=== PATIENT | male | born 1990 | race Caucasian/White ===

== ENCOUNTER 2018-11-30 12:52 | Inpatient (IN) | payer OTHER ==
[2018-11-30 14:19] LABS: Amphetamine Screen,Urine Detected (NotDetected); Barbiturate Screen,Urine Not Detected (NotDetected); Benzodiazepines Screen,Urine Not Detected (NotDetected); Cocaine Screen,Urine Not Detected (NotDetected); Methadone Screen, Urine Not Detected (NotDetected); Opiate Screen,Urine Not Detected (NotDetected); Oxycodone Screen, Urine Not Detected (NotDetected); Phencyclidine Screen,Urine Not Detected (NotDetected); Tricyclic Antidepressant,Urine Not Detected (NotDetected); Urn Cannabinoid Scrn Not Detected (NotDetected)
--- NOTE | 2018-11-30 15:12 | ED ---
Psych HPI - General Chief Complaint: Psychiatric Symptoms Stated Complaint: Mental Health Time Seen by Provider: 11/30/18 12:58 Source: patient, police, EMS, RN notes reviewed Mode of arrival: EMS Limitations: no limitations - History of Present Illness Initial Comments: This a 28-year-old male presents emergency Department with police for psychiatric evaluation. Patient states he has been depressed and states it is currently going through a divorce. Patient states he had an argument with his parents) for kicked him out the house last night. Patient states he is not suicidal. Patient states he is under a lot of stress because he is been trying take care of his kids, pain his bills and his mortgage in the house that he does not live in. Patient denies any physical complaints. He does admit that his heart has been headache as she's been anxious and states he drank 3 ripples. Patient denies any illicit drug use no alcohol abuse. - Related Data Home Medications Medication Instructions Recorded Confirmed Famotidine [Pepcid] 20 mg PO DAILY 11/30/18 11/30/18 Melatonin Unknown Dose 1 tab PO HS 11/30/18 11/30/18 Sertraline [Zoloft] 50 mg PO DAILY 11/30/18 11/30/18 Allergies Allergy/AdvReac Type Severity Reaction Status Date / Time No Known Allergies Allergy Verified 11/30/18 13:57 Review of Systems ROS Statement: Those systems with pertinent positive or pertinent negative responses have been documented in the HPI. ROS Other: All systems not noted in ROS Statement are negative. Past Medical History Past Medical History: No Reported History History of Any Multi-Drug Resistant Organisms: MRSA Date of last positivie culture/infection: 01/11/2014 MDRO Source:: Eye Past Surgical History: Tonsillectomy Past Psychological History: No Psychological Hx Reported Smoking Status: Current every day smoker Past Alcohol Use History: Occasional Past Drug Use History: None Reported General Exam Limitations: no limitations General appearance: alert, in no apparent distress Head exam: Present: atraumatic, normocephalic, normal inspection Eye exam: Present: normal appearance, PERRL, EOMI. Absent: scleral icterus, conjunctival injection, periorbital swelling ENT exam: Present: normal exam, normal oropharynx, mucous membranes moist, TM's normal bilaterally Neck exam: Present: normal inspection, full ROM. Absent: tenderness, meningismus, lymphadenopathy Respiratory exam: Present: normal lung sounds bilaterally. Absent: respiratory distress, wheezes, rales, rhonchi, stridor Cardiovascular Exam: Present: normal rhythm, tachycardia, normal heart sounds. Absent: systolic murmur, diastolic murmur, rubs, gallop, clicks GI/Abdominal exam: Present: soft, normal bowel sounds. Absent: distended, tenderness, guarding, rebound, rigid Neurological exam: Present: alert, oriented X3, CN II-XII intact Skin exam: Present: warm, dry, intact, normal color. Absent: rash Course Vital Signs 11/30/18 11/30/18 13:11 15:03 Temperature 97.4 F L Pulse Rate 140 H 118 H Respiratory 20 20 Rate Blood Pressure 169/99 135/80 O2 Sat by Pulse 100 99 Oximetry Medical Decision Making - Medical Decision Making 28-year-old male presented for psychiatric evaluation. Patient is brought by patient states police. Patient will be admitted for further evaluation for major depressive disorder with suicidal threats - Lab Data Lab Results 11/30/18 Range/Units 13:02 Urine Opiates Screen Not Detected (NotDetected) Ur Oxycodone Screen Not Detected (NotDetected) Urine Methadone Screen Not Detected (NotDetected) Ur Propoxyphene Screen Not Detected (NotDetected) Ur Barbiturates Screen Not Detected (NotDetected) U Tricyclic Antidepress Not Detected (NotDetected) Ur Phencyclidine Scrn Not Detected (NotDetected) Ur Amphetamines Screen Detected H (NotDetected) U Methamphetamines Scrn Not Detected (NotDetected) U Benzodiazepines Scrn Not Detected (NotDetected) Urine Cocaine Screen Not Detected (NotDetected) U Marijuana (THC) Screen Not Detected (NotDetected) Disposition Clinical Impression: Depression Disposition: TRANSFER TO PSYCH HOSP/UNIT Condition: Stable Referrals: None,Stated [Primary Care Provider] - 1-2 days Decision Date: 11/30/18 Decision Time: 15:42
[2018-11-30] MEDS ORDERED: NICOTINE 21MG/24HR PATCH TRANSDERM STA ×2 (15:37→18:34)
[2018-11-30] MEDS ORDERED: ZIPRASIDONE 20 MG VIAL IM STA (15:39)
[2018-11-30] MEDS ORDERED: LORazepam 2 MG/ML INJ IM STA (15:39)
[2018-11-30] MEDS ORDERED: ACETAMINOPHEN TAB 325 MG TAB PO PRN (16:57)
[2018-11-30] MEDS ORDERED: LORazepam 1 MG TAB PO PRN (16:57)
[2018-11-30] MEDS ORDERED: ZIPRASIDONE 20 MG VIAL IM PRN (16:57)
[2018-11-30] MEDS ORDERED: MAGNESIUM HYDROXIDE 2,400 MG/10 ML CUP PO PRN (16:57)
[2018-11-30] MEDS ORDERED: MAG HYDROX/AL HYDROX/SIMETH 30 ML CUP PO PRN (16:57)
[2018-11-30] MEDS ORDERED: LORazepam 2 MG/ML INJ IM PRN (17:01)
--- NOTE | 2018-11-30 17:49 | P.HPMEDMHU ---
History of Present Illness H&P Date: 11/30/18 Chief Complaint: altered behaviors Patient is a 19-year-old male with no significant past medical history who was brought in to the ER via police escort after family petitioned him. He has subsequently been admitted to the mental health unit. Patient seen and examined. He states he has been depressed and under a lot of stress lately due to his divorce. He had been residing with his mother. He has a history of drug use and last night he relapsed using methamphetamine. He states he was sober for 5 weeks prior to this. He states that things probably became escalated last night with his mother secondary to methamphetamine use. He denies any recent cough, cold, fever, flu, nausea, vomiting, diarrhea, constipation, abdominal pain, dysuria. He reports that he has had poor sleep quality lately. He states he recently was started on antidepressant. He states that he would not want to do anything that would harm his Children. States that bruising on his leg is from poor circulation. 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 He reports some facial itching. Review of Systems Pertinent positives and negatives as discussed in HPI, a complete review of systems was performed and all other systems are negative. 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 No assistive devices. - Past Family History Mother Additional Family Medical History / Comment(s): thyroid cancer Father Additional Family Medical History / Comment(s): DM 2, HTN Medications and Allergies Home Medications Medication Instructions Recorded Confirmed Type Famotidine [Pepcid] 20 mg PO DAILY 11/30/18 11/30/18 History Melatonin Unknown Dose 1 tab PO HS 11/30/18 11/30/18 History Sertraline [Zoloft] 50 mg PO DAILY 11/30/18 11/30/18 History Allergies Allergy/AdvReac Type Severity Reaction Status Date / Time No Known Allergies Allergy Verified 11/30/18 13:57 Physical Exam Osteopathic Statement: *. No significant issues noted on an osteopathic structural exam other than those noted in the History and Physical/Consult. Vitals: Vital Signs Temp Pulse Resp BP Pulse Ox 11/30/18 15:03 118 H 20 135/80 99 11/30/18 13:11 97.4 F L 140 H 20 169/99 100 Intake and Output 11/30/18 11/30/18 11/30/18 06:59 14:59 22:59 Other: Weight 81.647 kg General: non toxic, no distress, appears at stated age, normal weight Derm:+ erythema with desquamation of skin to right face and neck- consistent with sunburn, no unusual ecchymoses, warm, dry Head: atraumatic, normocephalic, symmetric Eyes: EOMI, no lid lag, anicteric sclera, pupils equal round reactive to light ENT: Nose and ears atraumatic, no thrush, no pharyngeal erythema Neck: No thyromegaly, no cervical lymphadenopathy, trachea midline, supple Mouth: no lip lesion, mucus membranes moist Cardiovascular: S1S2 reg, no murmur, positive posterior tibial pulse bilateral, no edema, capillary refill less than 2 seconds Lungs: CTA bilateral, no rhonchi, no rales , no accessory muscle use Abdominal: soft, nontender to palpation, no guarding, no appreciable orga nomegaly, normal bowel sounds Ext: no gross muscle atrophy, muscle strength 5 out of 5 in all upper extremities grossly, no contractures, Neuro: CN II-XI grossly intact, light touch intact all 4 extremities, finger to nose within normal limits, Psych: Alert, oriented, easily frustrated Cranial Nerve Examination - Cranial Nerves Cranial Nerve II- Optic: Intact Cranial Nerve III- Oculomotor: Intact Cranial Nerve IV- Trochlear: Intact Cranial Nerve V- Trigeminal: Intact Cranial Nerve - Abducens: Intact Cranial Nerve VII- Facial: Intact Cranial Nerve VIII- Auditory: Intact Cranial Nerve IX- Glossopharyngeal: Intact Cranial Nerve X- Vagus: Intact Cranial Nerve XI- Accessory: Intact Cranial Nerve XII- Hypoglossal: Intact Results Labs: Abnormal Lab Results - Last 24 Hours (Table) 11/30/18 Range/Units 13:02 Ur Amphetamines Screen Detected H (NotDetected) Thrombosis Risk Factor Assmnt - DVT/VTE Prophylaxis DVT/VTE Prophylaxis: Low risk, early ambulation encouraged Assessment and Plan Assessment: facial dermatitis secondary to sun exposure - keep area clean and dry - as needed lotion Tobacco abuse - cessation - nicotine replacement Depression with aggressive behaviors - your psych management Thank you for allowing us to participate in the care of this patient. We will follow peripherally. Do not hesitate to contact us with questions. Someone can be reached from the [facility] hospitalist group at all hours of the day at [phone].
[2018-11-30 18:39] VITALS: BMI 30.6
[2018-11-30] MEDS: MELATONIN 1 MG TAB PO SCH (20:37)
[2018-12-01] MEDS ORDERED: SERTRALINE 50 MG TAB PO SCH ×2 (09:00→21:00)
[2018-12-01] MEDS: NICOTINE 21MG/24HR PATCH TRANSDERM SCH (09:02)
[2018-12-01] MEDS: FAMOTIDINE 20 MG TAB PO SCH (09:02)
[2018-12-01 09:30] LABS: Basophils # (A) 0.1 k/uL (0-0.2); Basophils % (A) 1 %; Eosinophils # (A) 0.2 k/uL (0-0.7); Eosinophils % (A) 2 %; HCT 48.4 % (39.0-53.0); HGB 15.6 gm/dL (13.0-17.5); Lymphocytes # (A) 2.2 k/uL (1.0-4.8); Lymphocytes % (A) 24 %; MCH 27.8 pg (25.0-35.0); MCHC 32.3 g/dL (31.0-37.0); MCV 86.3 fL (80.0-100.0); Mean Platelet Volume 7.3; Monocytes # (A) 0.7 k/uL (0-1.0); Monocytes % (A) 7 %; Neutrophils # (A) 6.1 k/uL (1.3-7.7); Neutrophils % (A) 65 %; Platelet Count 251 k/uL (150-450); RBC 5.61 m/uL (4.30-5.90); RDW 14.1 % (11.5-15.5); WBC 9.4 k/uL (3.8-10.6)
[2018-12-01 09:45] LABS: ALT 52 U/L (21-72); AST 30 U/L (17-59); Albumin 4.6 g/dL (3.5-5.0); Alkaline Phosphatase 80 U/L (38-126); Anion Gap 8 mmol/L; Bilirubin, Delta 0.3 mg/dL (0.0-0.2); Bilirubin,Unconjugated 1.2 mg/dL (0.0-1.1); Blood Urea Nitrogen 15 mg/dL (9-20); Carbon Dioxide 30 mmol/L (22-30); Chloride 101 mmol/L (98-107); Glucose 97 mg/dL (74-99); Potassium 4.8 mmol/L (3.5-5.1); Sodium 139 mmol/L (137-145); Total Bilirubin 1.5 mg/dL (0.2-1.3); Total Protein 7.4 g/dL (6.3-8.2)
--- NOTE | 2018-12-01 14:35 | P.HP ---
Psychiatric H&P - . H&P Date: 12/01/18 History & Physical: Allergies Allergy/AdvReac Type Severity Reaction Status Date / Time No Known Allergies Allergy Verified 11/30/18 18:40 Vital Signs Temp 97.8 F 12/01/18 06:47 Pulse 92 12/01/18 06:47 Resp 16 12/01/18 06:47 BP 130/77 12/01/18 06:47 Pulse Ox 98 11/30/18 16:33 Intake & Output 11/30/18 12/01/18 12/01/18 18:59 06:59 18:59 Weight 81.647 kg Laboratory Last Values WBC 9.4 k/uL (3.8-10.6) 12/01/18 08:40 RBC 5.61 m/uL (4.30-5.90) 12/01/18 08:40 Hgb 15.6 gm/dL (13.0-17.5) 12/01/18 08:40 Hct 48.4 % (39.0-53.0) 12/01/18 08:40 MCV 86.3 fL (80.0-100.0) 12/01/18 08:40 MCH 27.8 pg (25.0-35.0) 12/01/18 08:40 MCHC 32.3 g/dL (31.0-37.0) 12/01/18 08:40 RDW 14.1 % (11.5-15.5) 12/01/18 08:40 Plt Count 251 k/uL (150-450) 12/01/18 08:40 Neutrophils % 65 % 12/01/18 08:40 Lymphocytes % 24 % 12/01/18 08:40 Monocytes % 7 % 12/01/18 08:40 Eosinophils % 2 % 12/01/18 08:40 Basophils % 1 % 12/01/18 08:40 Neutrophils # 6.1 k/uL (1.3-7.7) 12/01/18 08:40 Lymphocytes # 2.2 k/uL (1.0-4.8) 12/01/18 08:40 Monocytes # 0.7 k/uL (0-1.0) 12/01/18 08:40 Eosinophils # 0.2 k/uL (0-0.7) 12/01/18 08:40 Basophils # 0.1 k/uL (0-0.2) 12/01/18 08:40 Sodium 139 mmol/L (137-145) 12/01/18 08:40 Potassium 4.8 mmol/L (3.5-5.1) 12/01/18 08:40 Chloride 101 mmol/L (98-107) 12/01/18 08:40 Carbon Dioxide 30 mmol/L (22-30) 12/01/18 08:40 Anion Gap 8 mmol/L 12/01/18 08:40 BUN 15 mg/dL (9-20) 12/01/18 08:40 Creatinine 0.74 mg/dL (0.66-1.25) 12/01/18 08:40 Est GFR (CKD-EPI)AfAm >90 (>60 ml/min/1.73 sqM) 12/01/18 08:40 Est GFR (CKD-EPI)NonAf >90 (>60 ml/min/1.73 sqM) 12/01/18 08:40 Glucose 97 mg/dL (74-99) 12/01/18 08:40 Calcium 10.0 mg/dL (8.4-10.2) 12/01/18 08:40 Total Bilirubin 1.5 mg/dL (0.2-1.3) H 12/01/18 08:40 Conjugated Bilirubin 0.0 mg/dL (0.0-0.3) 12/01/18 08:40 Unconjugated Bilirubin 1.2 mg/dL (0.0-1.1) H 12/01/18 08:40 Delta Bilirubin 0.3 mg/dL (0.0-0.2) H 12/01/18 08:40 AST 30 U/L (17-59) 12/01/18 08:40 ALT 52 U/L (21-72) 12/01/18 08:40 Alkaline Phosphatase 80 U/L (38-126) 12/01/18 08:40 Total Protein 7.4 g/dL (6.3-8.2) 12/01/18 08:40 Albumin 4.6 g/dL (3.5-5.0) 12/01/18 08:40 TSH 0.570 mIU/L (0.465-4.680) 12/01/18 08:40 Urine Opiates Screen Not Detected (NotDetected) 11/30/18 13:02 Ur Oxycodone Screen Not Detected (NotDetected) 11/30/18 13:02 Urine Methadone Screen Not Detected (NotDetected) 11/30/18 13:02 Ur Propoxyphene Screen Not Detected (NotDetected) 11/30/18 13:02 Ur Barbiturates Screen Not Detected (NotDetected) 11/30/18 13:02 U Tricyclic Antidepress Not Detected (NotDetected) 11/30/18 13:02 Ur Phencyclidine Scrn Not Detected (NotDetected) 11/30/18 13:02 Ur Amphetamines Screen Detected (NotDetected) H 11/30/18 13:02 U Methamphetamines Scrn Not Detected (NotDetected) 11/30/18 13:02 U Benzodiazepines Scrn Not Detected (NotDetected) 11/30/18 13:02 Urine Cocaine Screen Not Detected (NotDetected) 11/30/18 13:02 U Marijuana (THC) Screen Not Detected (NotDetected) 11/30/18 13:02 Assessment and Plan Assessment: This a 28-year-old male presents emergency Department with police for psychia tric evaluation. Patient states he has been depressed and states it is currently going through a divorce. Patient states he had an argument with his parents) for kicked him out the house last night. Patient states he is not suicidal. Patient states he is under a lot of stress because he is been trying take care of his kids, pain his bills and his mortgage in the house that he does not live in. Patient denies any physical complaints. He does admit that his heart has been headache as she's been anxious and states he drank 3 ripples. Patient denies any illicit drug use no alcohol abuse. Police had brought pt. to ER and family came and petitioned. Pt. is in the process of Divorce and his mom has been taking care of his kids. Police were called to moms residence because he was attempting to take his kids while arguing with mom. Pt. had made some suicidal statements but told police he was not going to harm self. Pt. had taken a gun with ammo on the and the police were called to a home by an adopted brother and no report was made. The police located him today and brought him to be evaluated. Pt. denies wanting to harm himself and states his family is ganging up on him. Pt. states his mother wants to keep his kids. Pt. denies and states he made some comments to his about not wanting to be alone but he doesn't want to do anything that will hurt his kids. Pt. admits to buyig a bottle a fifth of [place] 2 weeks ago and finished it yesterday. Pt. states he doesn't use drugs. UDS was positive for amphetamines. - Related Data Home Medications Medication Instructions Recorded Confirmed Famotidine [Pepcid] 20 mg PO DAILY 11/30/18 11/30/18 Melatonin Unknown Dose 1 tab PO HS 11/30/18 11/30/18 Sertraline [Zoloft] 50 mg PO DAILY 11/30/18 11/30/18 Allergies Allergy/AdvReac Type Severity Reaction Status Date / Time No Known Allergies Allergy Verified 11/30/18 13:57 Past Medical History Past Medical History: No Reported History History of Any Multi-Drug Resistant Organisms: MRSA Date of last positivie culture/infection: 01/11/2014 MDRO Source:: Eye Past Surgical History: Tonsillectomy Past Psychological History: history of depression; sister bipolar Smoking Status: Current every day smoker Past Alcohol Use History: Occasional Past Drug Use History: None Reported Musculoskeletal Examination - Abnormal/Involuntary Movements: [none Strength: [greater than antigravity (greater than/equal to 3/5) in all extremities Muscle Tone: [no impairment Gait: [grossly normal Station: [grossly normal Mental Status Examination - General Appearance: [ casual, appears older than stated age Speech/Language: [spontaneous, expressive, loud, ] Attitude/Behavior: [cooperative, guarded, irritable, withdrawn, indifferent Mood: [ depressed, anxious, irritable, angry, fearful, hopelessness] Affect: [ flat, labile, blunted constricted Orientation: [time, person, place situation] Thought Content: [wnl Risk Factors: [denied suicidal (ideations, plan), and/or Homicidal (ideations, plan)] Perception: [wnl, denies hallucinations (auditory, visual, tactile)] Thought Processes: [ concrete, ] Concentration/Attention Span: [ impaired] [Per observation and interview with the patient] Recent Memory: [wnl Remote Memory: [wnl] [past events, as related history] Intelligence: [ above average] [based on history, based on vocabulary, syntax, grammar, and content] Judgement: [good] [per patient's behavior/history of present illness] Insight: [good] [understanding severity of illness/history of present illness] Admitting Diagnosis: [major depressive disorder] Patient Strengths - Personal Skills: [x] Achievements: [x] Steady employment/financial stability: [x] Housing stability: [x] Able to vocalize needs: [x] Values and traditions: [x] Motivation, determination, readiness for change: [x] Patient Limitations: [ pathological/unsupported environment lack of social supports] Initial Plan of Care: [he'll be admitted on 3 W. mental health unit [facility] on a voluntary basis for his depression and irritability anger and marital separation with eventual divorce complicated by children they have together. He will placed on 15 minute watch and usual [facility] therapeutic environment. He'll be evaluated by medicine, psychiatry, nursing staff, social work and occupational therapy and will be teamed and a multidisciplinary approach on a daily basis. 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.] Estimated Length of Stay: [5 days] Initial Discharge Plan: [home residential placement for residential substance abuse treatment of amphetamine] Prognosis: [good, fair, guarded] Justification for Inpatient Hospitalization - [ agitation, anxiety, depression resulting in significant loss of functioning.] [Dangerous to others, with need for controlled environment.] [Emotional or behavioral conditions and complications requiring 24 hour medical and nursing care.] [Need for special drug therapy, or other therapeutic program requiring continuous hospitalization.] [Failure of social or occupational functioning.] [Inability to meet basic life and health needs.] (1) Major depressive disorder with current active episode Current Visit: Yes Status: Acute Code(s): F32.9 - MAJOR DEPRESSIVE DISORDER, SINGLE EPISODE, UNSPECIFIED SNOMED Code(s): 480279719 Time with Patient: Greater than 30
[2018-12-01] MEDS: NALTREXONE HCL 50 MG TAB PO SCH (21:30)
[2018-12-01] MEDS: MELATONIN 1 MG TAB PO SCH (21:31)
[2018-12-02] MEDS: FAMOTIDINE 20 MG TAB PO SCH (08:51)
[2018-12-02] MEDS: buPROPion XL 150 MG TAB.ER.24H PO SCH (08:51)
[2018-12-02] MEDS: NICOTINE 21MG/24HR PATCH TRANSDERM SCH (08:51)
--- NOTE | 2018-12-02 12:18 | P.PN ---
Subjective Progress Note Date: 12/02/18 Principal diagnosis: major depressive disorder and amphetamine chart reviewed and discussed in detail today and he admits that he is an adddict :amphetamine Objective - Vital Signs Vital signs: Vital Signs Temp 97.7 F 12/02/18 06:15 Pulse 71 12/02/18 06:15 Resp 14 12/02/18 06:15 BP 111/60 12/02/18 06:15 Pulse Ox 98 11/30/18 16:33 - Labs CBC & Chem 7: 12/01/18 08:40 12/01/18 08:40 Assessment and Plan Assessment: This a 28-year-old male presents emergency Department with police for psychiatric evaluation. Patient states he has been depressed and states it is currently going through a divorce. Patient states he had an argument with his parents) for kicked him out the house last night. Patient states he is not suicidal. Patient states he is under a lot of stress because he is been trying take care of his kids, pain his bills and his mortgage in the house that he does not live in. Patient denies any physical complaints. He does admit that his heart has been headache as she's been anxious and states he drank 3 ripples. Patient denies any illicit drug use no alcohol abuse. Police had brought pt. to ER and family came and petitioned. Pt. is in the process of Divorce and his mom has been taking care of his kids. Police were called to moms residence because he was attempting to take his kids while arguing with mom. Pt. had made some suicidal statements but told police he was not going to harm self. Pt. had taken a gun with ammo on the and the police were called to a home by an adopted brother and no report was made. The police located him today and brought him to be evaluated. Pt. denies wanting to harm himself and states his family is ganging up on him. Pt. states his mother wants to keep his kids. Pt. denies and states he made some comments to his about not wanting to be alone but he doesn't want to do anything that will hurt his kids. Pt. admits to buyig a bottle a fifth of [place] 2 weeks ago and finished it yesterday. Pt. states he doesn't use drugs. UDS was positive for amphetamines. - Mental Status Examination - General Appearance: [ casual, appears older than stated age Speech/Language: [spontaneous, expressive, loud, ] Attitude/Behavior: [cooperative, guarded, irritable, withdrawn, indifferent Mood: [ depressed, anxious, irritable, angry, fearful, hopelessness] Affect: [ flat, labile, blunted constricted Orientation: [time, person, place situation] Thought Content: [wnl Risk Factors: [denied suicidal (ideations, plan), and/or Homicidal (ideations, plan)] Perception: [wnl, denies hallucinations (auditory, visual, tactile)] Thought Processes: [ concrete, ] Concentration/Attention Span: [ impaired] [Per observation and interview with the patient] Recent Memory: [wnl Remote Memory: [wnl] [past events, as related history] Intelligence: [ above average] [based on history, based on vocabulary, syntax, grammar, and content] Judgement: [good] [per patient's behavior/history of present illness] Insight: [good] [understanding severity of illness/history of present illness] Admitting Diagnosis: [major depressive disorder] Patient Limitations: [ pathological/unsupported environment lack of social supports] Initial Plan of Care: [he'll be admitted on 3 W. mental health unit [facility] on a voluntary basis for his depression and irritability anger and marital separation with eventual divorce complicated by children they have together. He will placed on 15 minute watch and usual [facility] therapeutic environment. He'll be evaluated by medicine, psychiatry, nursing staff, social work and occupational therapy and will be teamed and a multidisciplinary approach on a daily basis. 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
[2018-12-02] MEDS: SERTRALINE 50 MG TAB PO SCH (21:04)
[2018-12-02] MEDS: NALTREXONE HCL 50 MG TAB PO SCH (21:04)
[2018-12-02] MEDS: MELATONIN 1 MG TAB PO SCH (21:04)
[2018-12-03] MEDS: buPROPion XL 150 MG TAB.ER.24H PO SCH (09:03)
[2018-12-03] MEDS: NICOTINE 21MG/24HR PATCH TRANSDERM SCH (09:03)
[2018-12-03] MEDS: FAMOTIDINE 20 MG TAB PO SCH (09:03)
--- NOTE | 2018-12-03 19:57 | P.PN ---
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 Reports gradual improvement in his mood. Medication complaint and tolerating them well. Working on his coping skills. Denies hearing any voices or seeing things. Did sleep better last night MSE :AAOx 4. fair eye contact. Mood depressed. Has no suicidal ideation. No psychoses. Insight and judgment improving Major Depression Will continue to adjust medications accordingly Objective - Vital Signs Vital signs: Vital Signs Temp 98.2 F 12/03/18 00:06 Pulse 87 12/03/18 00:06 Resp 15 12/03/18 00:06 BP 138/86 12/03/18 00:06 Pulse Ox 98 11/30/18 16:33 - Labs CBC & Chem 7: 12/01/18 08:40 12/01/18 08:40
[2018-12-03] MEDS: SERTRALINE 50 MG TAB PO SCH (21:23)
[2018-12-03] MEDS: MELATONIN 1 MG TAB PO SCH (21:23)
[2018-12-03] MEDS: NALTREXONE HCL 50 MG TAB PO SCH (21:23)
[2018-12-04 07:01] VITALS: RESP 16
[2018-12-04] MEDS: NICOTINE 21MG/24HR PATCH TRANSDERM SCH (09:17)
[2018-12-04] MEDS: FAMOTIDINE 20 MG TAB PO SCH (09:17)
[2018-12-04] MEDS: buPROPion XL 150 MG TAB.ER.24H PO SCH (09:17)
--- NOTE | 2018-12-04 12:00 | P.PN ---
Subjective Progress Note Date: 12/04/18 Principal diagnosis: Major Depression Amphetamine Use Disorder Major Depressive Disorder, severe recurrent Found him in his room. Reports gradual improvement in his mood. Medication complaint and tolerating them well. Working on his coping skills. Denies hearing any voices or seeing things. Did sleep better last night MSE :AAOx 4. fair eye contact. Mood depressed. Has no suicidal ideation. No psychoses. Insight and judgment improving Major Depression Will continue to adjust medications accordingly Objective - Vital Signs Vital signs: Vital Signs Temp 97.8 F 12/04/18 06:32 Pulse 95 12/04/18 06:32 Resp 16 12/04/18 06:32 BP 129/64 12/04/18 06:32 Pulse Ox 98 11/30/18 16:33 Intake & Output 12/03/18 12/04/18 12/04/18 18:59 06:59 18:59 Weight 93.457 kg - Labs CBC & Chem 7: 12/01/18 08:40 12/01/18 08:40
[2018-12-04] MEDS: SERTRALINE 50 MG TAB PO SCH (21:04)
[2018-12-04] MEDS: NALTREXONE HCL 50 MG TAB PO SCH (21:04)
[2018-12-04] MEDS: MELATONIN 1 MG TAB PO SCH (21:04)
[2018-12-05 07:00] VITALS: BP 113/65; PULSE 79; TEMP 98.4
[2018-12-05] MEDS: NICOTINE 21MG/24HR PATCH TRANSDERM SCH (08:31)
[2018-12-05] MEDS: FAMOTIDINE 20 MG TAB PO SCH (08:31)
[2018-12-05] MEDS: buPROPion XL 150 MG TAB.ER.24H PO SCH (08:31)
--- NOTE | 2018-12-05 12:32 | P.DS ---
Providers Date of admission: 11/30/18 16:09 Expected date of discharge: 12/05/18 Attending physician: Sebastien Jin DO Consults: 11/30/18 16:57 Consult Physician Routine Consulting Provider: Rashaad Beebe Consult Reason/Comments: H & P and medical care Do you want consulting provider notified?: Yes Primary care physician: Stated None - Discharge Diagnosis(es) (1) Major depressive disorder with current active episode Allergies Allergy/AdvReac Type Severity Reaction Status Date / Time No Known Allergies Allergy Verified 11/30/18 18:40 Vital Signs Temp 97.8 F 12/01/18 06:47 Pulse 92 12/01/18 06:47 Resp 16 12/01/18 06:47 BP 130/77 12/01/18 06:47 Pulse Ox 98 11/30/18 16:33 Intake & Output 11/30/18 12/01/18 12/01/18 18:59 06:59 18:59 Weight 81.647 kg Laboratory Last Values WBC 9.4 k/uL (3.8-10.6) 12/01/18 08:40 RBC 5.61 m/uL (4.30-5.90) 12/01/18 08:40 Hgb 15.6 gm/dL (13.0-17.5) 12/01/18 08:40 Hct 48.4 % (39.0-53.0) 12/01/18 08:40 MCV 86.3 fL (80.0-100.0) 12/01/18 08:40 MCH 27.8 pg (25.0-35.0) 12/01/18 08:40 MCHC 32.3 g/dL (31.0-37.0) 12/01/18 08:40 RDW 14.1 % (11.5-15.5) 12/01/18 08:40 Plt Count 251 k/uL (150-450) 12/01/18 08:40 Neutrophils % 65 % 12/01/18 08:40 Lymphocytes % 24 % 12/01/18 08:40 Monocytes % 7 % 12/01/18 08:40 Eosinophils % 2 % 12/01/18 08:40 Basophils % 1 % 12/01/18 08:40 Neutrophils # 6.1 k/uL (1.3-7.7) 12/01/18 08:40 Lymphocytes # 2.2 k/uL (1.0-4.8) 12/01/18 08:40 Monocytes # 0.7 k/uL (0-1.0) 12/01/18 08:40 Eosinophils # 0.2 k/uL (0-0.7) 12/01/18 08:40 Basophils # 0.1 k/uL (0-0.2) 12/01/18 08:40 Sodium 139 mmol/L (137-145) 12/01/18 08:40 Potassium 4.8 mmol/L (3.5-5.1) 12/01/18 08:40 Chloride 101 mmol/L (98-107) 12/01/18 08:40 Carbon Dioxide 30 mmol/L (22-30) 12/01/18 08:40 Anion Gap 8 mmol/L 12/01/18 08:40 BUN 15 mg/dL (9-20) 12/01/18 08:40 Creatinine 0.74 mg/dL (0.66-1.25) 12/01/18 08:40 Est GFR (CKD-EPI)AfAm >90 (>60 ml/min/1.73 sqM) 12/01/18 08:40 Est GFR (CKD-EPI)NonAf >90 (>60 ml/min/1.73 sqM) 12/01/18 08:40 Glucose 97 mg/dL (74-99) 12/01/18 08:40 Calcium 10.0 mg/dL (8.4-10.2) 12/01/18 08:40 Total Bilirubin 1.5 mg/dL (0.2-1.3) H 12/01/18 08:40 Conjugated Bilirubin 0.0 mg/dL (0.0-0.3) 12/01/18 08:40 Unconjugated Bilirubin 1.2 mg/dL (0.0-1.1) H 12/01/18 08:40 Delta Bilirubin 0.3 mg/dL (0.0-0.2) H 12/01/18 08:40 AST 30 U/L (17-59) 12/01/18 08:40 ALT 52 U/L (21-72) 12/01/18 08:40 Alkaline Phosphatase 80 U/L (38-126) 12/01/18 08:40 Total Protein 7.4 g/dL (6.3-8.2) 12/01/18 08:40 Albumin 4.6 g/dL (3.5-5.0) 12/01/18 08:40 TSH 0.570 mIU/L (0.465-4.680) 12/01/18 08:40 Urine Opiates Screen Not Detected (NotDetected) 11/30/18 13:02 Ur Oxycodone Screen Not Detected (NotDetected) 11/30/18 13:02 Urine Methadone Screen Not Detected (NotDetected) 11/30/18 13:02 Ur Propoxyphene Screen Not Detected (NotDetected) 11/30/18 13:02 Ur Barbiturates Screen Not Detected (NotDetected) 11/30/18 13:02 U Tricyclic Antidepress Not Detected (NotDetected) 11/30/18 13:02 Ur Phencyclidine Scrn Not Detected (NotDetected) 11/30/18 13:02 Ur Amphetamines Screen Detected (NotDetected) H 11/30/18 13:02 U Methamphetamines Scrn Not Detected (NotDetected) 11/30/18 13:02 U Benzodiazepines Scrn Not Detected (NotDetected) 11/30/18 13:02 Urine Cocaine Screen Not Detected (NotDetected) 11/30/18 13:02 U Marijuana (THC) Screen Not Detected (NotDetected) 11/30/18 13:02 Assessment and Plan Assessment: This a 28-year-old male presents emergency Department with police for psychiatric evaluation. Patient states he has been depressed and states it is currently going through a divorce. Patient states he had an argument with his parents) for kicked him out the house last night. Patient states he is not suicidal. Patient states he is under a lot of stress because he is been trying take care of his kids, pain his bills and his mortgage in the house that he does not live in. Patient denies any physical complaints. He does admit that his heart has been headache as she's been anxious and states he drank 3 ripples. Patient denies any illicit drug use no alcohol abuse. Police had brought pt. to ER and family came and petitioned. Pt. is in the process of Divorce and his mom has been taking care of his kids. Police were called to [facility] residence because he was attempting to take his kids while arguing with mom. Pt. had made some suicidal statements but told police he was not going to harm self. Pt. had taken a gun with ammo on the and the police were called to a home by an adopted brother and no report was made. The police located him today and brought him to be evaluated. Pt. denies wanting to harm himself and states his family is ganging up on him. Pt. states his mother wants to keep his kids. Pt. denies and states he made some comments to his about not wanting to be alone but he doesn't want to do anything that will hurt his kids. Pt. admits to buyig a bottle a fifth of [place] 2 weeks ago and finished it yesterday. Pt. states he doesn't use drugs. UDS was positive for amphetamines. - Related Data Home Medications Medication Instructions Recorded Confirmed Famotidine [Pepcid] 20 mg PO DAILY 11/30/18 11/30/18 Melatonin Unknown Dose 1 tab PO HS 11/30/18 11/30/18 Sertraline [Zoloft] 50 mg PO DAILY 11/30/18 11/30/18 Allergies Allergy/AdvReac Type Severity Reaction Status Date / Time No Known Allergies Allergy Verified 11/30/18 13:57 Past Medical History Past Medical History: No Reported History History of Any Multi-Drug Resistant Organisms: MRSA Date of last positivie culture/infection: 01/11/2014 MDRO Source:: Eye Past Surgical History: Tonsillectomy Past Psychological History: history of depression; sister bipolar Smoking Status: Current every day smoker Past Alcohol Use History: Occasional Past Drug Use History: None Reported Musculoskeletal Examination - Abnormal/Involuntary Movements: [none Strength: [greater than antigravity (greater than/equal to 3/5) in all extremities Muscle Tone: [no impairment Gait: [grossly normal Station: [grossly normal Mental Status Examination - General Appearance: [ casual, appears older than stated age Speech/Language: [spontaneous, expressive, loud, ] Attitude/Behavior: [cooperative, guarded, irritable, withdrawn, indifferent Mood: [ depressed, anxious, irritable, angry, fearful, hopelessness] Affect: [ flat, labile, blunted constricted Orientation: [time, person, place situation] Thought Content: [wnl Risk Factors: [denied suicidal (ideations, plan), and/or Homicidal (ideations, plan)] Perception: [wnl, denies hallucinations (auditory, visual, tactile)] Thought Processes: [ concrete, ] Concentration/Attention Span: [ impaired] [Per observation and interview with the patient] Recent Memory: [wnl Remote Memory: [wnl] [past events, as related history] Intelligence: [ above average] [based on history, based on vocabulary, syntax, grammar, and content] Judgement: [good] [per patient's behavior/history of present illness] Insight: [good] [understanding severity of illness/history of present illness] Current Visit: Yes Status: Acute Hospital Course: Plan of Care: [he'll be admitted on [facility] mental health unit [facility] on a voluntary basis for his depression and irritability anger and marital separation with eventual divorce complicated by children they have together. He will placed on 15 minute watch and usual [facility] therapeutic environment. He'll be evaluated by medicine, psychiatry, nursing staff, social work and occupational therapy and will be teamed and a multidisciplinary approach on a daily basis. 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 Discharge Medication List Famotidine [Pepcid] 20 mg PO DAILY 30 Days #30 tab 12/05/18 [Rx] Melatonin 1 mg PO HS tab 12/05/18 [Rx] Naltrexone HCl [Revia] 50 mg PO 2100 30 Days #30 tab 12/05/18 [Rx] Nicotine 21Mg/24Hr Patch [Habitrol] 1 patch TRANSDERM DAILY 30 Days #30 patch 12/05/18 [Rx] Sertraline [Zoloft] 50 mg PO 2100 #30 tab 12/05/18 [Rx] buPROPion XL [Wellbutrin XL] 150 mg PO DAILY 30 Days #30 tab.er.24h 12/05/18 [Rx] Mental status examination at the time of discharge: The patient presents alert, pleasant, and cooperative. There calmly seated without any agitated behavior. [he] reports that [his] mood is good. Affect is congruent and euthymic. [he] deny having any suicidal or homicidal ideation intent or plan. [he] denies any auditory or visual hallucinations. There is no evidence of any delusional thought content. [his] thought process is linear and goal-directed. [his] speech is fluent and nonpressured. [his] memory and concentration is grossly intact for the purposes of this session. Patient Condition at Discharge: Stable Plan - Discharge Summary Discharge Rx Participant: No New Discharge Prescriptions: New Nicotine 21Mg/24Hr Patch [Habitrol] 1 patch TRANSDERM DAILY 30 Days #30 patch Melatonin 1 mg PO HS tab Naltrexone HCl [Revia] 50 mg PO 2100 30 Days #30 tab buPROPion XL [Wellbutrin XL] 150 mg PO DAILY 30 Days #30 tab.er.24h Sertraline [Zoloft] 50 mg PO 2100 #30 tab Continue Famotidine [Pepcid] 20 mg PO DAILY 30 Days #30 tab Discontinued Sertraline [Zoloft] 50 mg PO DAILY Melatonin Unknown Dose 1 tab PO HS Discharge Medication List Famotidine [Pepcid] 20 mg PO DAILY 30 Days #30 tab 12/05/18 [Rx] Melatonin 1 mg PO HS tab 12/05/18 [Rx] Naltrexone HCl [Revia] 50 mg PO 2100 30 Days #30 tab 12/05/18 [Rx] Nicotine 21Mg/24Hr Patch [Habitrol] 1 patch TRANSDERM DAILY 30 Days #30 patch 12/05/18 [Rx] Sertraline [Zoloft] 50 mg PO 2100 #30 tab 12/05/18 [Rx] buPROPion XL [Wellbutrin XL] 150 mg PO DAILY 30 Days #30 tab.er.24h 12/05/18 [Rx] Follow up Appointment(s)/Referral(s): None,Stated [Primary Care Provider] - 1-2 days Discharge Disposition: HOME SELF-CARE
== END 2018-12-05 13:16 | disposition home or self-care (01) | DRG 885 ==
LOC: EC 12:52 → 3MHU 16:09
PROVIDERS: ADMIT Psychiatry & Neurology Psychiatry; ATTEND Psychiatry & Neurology Psychiatry
DX: F33.2 Major depressive disorder, recurrent severe without psychotic features (principal); F15.10 Other stimulant abuse, uncomplicated; Z71.6 Tobacco abuse counseling; F17.210 Nicotine dependence, cigarettes, uncomplicated; Z81.8 Family history of other mental and behavioral disorders; Z86.14 Personal history of Methicillin resistant Staphylococcus aureus infection; Z79.899 Other long term (current) drug therapy; Z63.5 Disruption of family by separation and divorce; L55.9 Sunburn, unspecified; L57.8 Other skin changes due to chronic exposure to nonionizing radiation; Z83.3 Family history of diabetes mellitus; Z82.49 Family history of ischemic heart disease and other diseases of the circulatory system; Z80.8 Family history of malignant neoplasm of other organs or systems
CPT/HCPCS: 80053; 80306; 82075; 82248; 84443; 85025; 93005; 99285

== ENCOUNTER → 2023-06-23 | Outpatient (CLI) | payer BC ==
[2023-06-23 07:56] VITALS: BP 119/78; PULSE 85; RESP 16; TEMP 98.8
--- NOTE | 2023-06-23 14:31 | P.PAINPG ---
PQRS Measure Charge Sheet Comment: HISTORY OF PRESENT ILLNESS: A 33 yr old male as a referral from Dr Miller presents today w severe and chronic LBP secondary to DDD, spondylosis and facet arthropathy without myelopathy for evaluation. Pt states pain level is provoked at 8 /10 in intensity, constant, localized in the lower lumbar spine, sharp in character w shooting pain towards the buttocks and hips. Pain is provoked by overactivity. Pain is alleviated by PT in 2020, physician guided exercises and stretches daily since 2021, medications (Ibu), topical, repositioning and rest. Oswestry axial pain score at 12. PMH: OA PSH: Tonsillectomy, R Femur [employer]ware s/p Fx (2019) SH: Daily tobacco use, Occasional ETOH use, No illicit drug use FH: Non contributory All: See list Meds: See list REVIEW OF ORGAN SYSTEMS: CONSTITUTIONAL: No fevers or chills. No recent weight loss. NEUROLOGICAL: + numbness and tingling along the distal extremities. No seizure disorders or headaches. MUSCULOSKELETAL: + pain PSYCHIATRIC: Denies current depression or suicidal thoughts. Physical Examinations : Constitutional : Cooperative , not in acute distress . Neurologic : Cranial nerve II to XII intact. No focal neurological deficits. Psychiatric : alert & oriented x 3. Matching mood & appropriate affect. Judgment & insight intact. Musculoskeletal : Cervical Spine Motor strength in the deltoid and biceps: Normal right side. Normal Left side Motor strength biceps and the wrist extensors: Normal right side . Normal left side Motor strength in the triceps muscle: Normal right side. Normal left side Deep tendon reflexes: Normal at the biceps. Normal at Brachioradialis. Normal at triceps Vertebral body tenderness to deep palpation over Cervical facet loading test: positive bilaterally Spurling test: positive bilaterally Neck distraction test: positive bilaterally Raven sign: positive bilaterally Lumbar spine Motor strength lower extremities ,thigh and legs 5/5 Right side , 5/5 Left side Deep tendon reflexes : Normal Knee Jerk. Normal Ankle Jerk Vertebral body tenderness over Jerez Test positive Lumbar facet Loading Test: positive Right / positive Left over L4-L5, L5-S1 Range of motion of the lumbar spine Flexion 30 degrees, extension 10 degrees Straight Leg Raise test: Left/ Right positive at degree Enrique test: positive right / positive left. Severe tenderness over the Sacroiliac joint on the Right / Left sides Gaenslen test: positive bilaterally Seated flexion test: positive bilaterally. Sacral spine : Severe tenderness over the Sacroiliac joint: right side / left side Range of motion: Flexion of the lumbar spine <60 degrees Range of motion: Extension of the lumbar spine <20 degrees Gaenslen's Test positive Andrea's Test positive Enrique test: positive right side / left side Thigh Thrust Test Sacral Thrust Test Imaging: MRI noncontrast the lumbar spine from 05/07/23 reviewed Assessment/ Plan : Lumbar DDD Recommendation of BL MBB L4-L5, L5-S1 #1. May need a series of injections, up until RFA, for optimal pain relief. Risks, benefits of procedure discussed and patient verbalized understanding. Admits to anti- coagulant use or medical history of diabetes. Protocol for discontinuation/ continuation of medications cheryle procedure discussed. Minimal anesthesia provided, if clinically indicated, consisting of Versed and Fentanyl. All questions answered. I have spent greater than 30 minutes on patient care today. Dr Lawson was available by phone for the evaluation of this patient. The time was used to review the medical records including relevant urine studies and Prescription history (MAPs), review of the available imaging, evaluation and examination of the patient, coordination of care with the medical staff and if applicable referring physicians, as well as creation of the medical record PQRS Narrative: Smoking Status Current every day smoker Home Medications: Ambulatory Orders Famotidine [Pepcid] 20 mg PO DAILY 30 Days #30 tab 12/05/18 Melatonin 1 mg PO HS tab 12/05/18 Naltrexone HCl [Revia] 50 mg PO 2100 30 Days #30 tab 12/05/18 Nicotine 21Mg/24Hr Patch [Habitrol] 1 patch TRANSDERM DAILY 30 Days #30 patch 12/05/18 Sertraline [Zoloft] 50 mg PO 2100 #30 tab 12/05/18 buPROPion XL [Wellbutrin XL] 150 mg PO DAILY 30 Days #30 tab.er.24h 12/05/18 Controlled Substance Measures - Controlled Substance Measures Is patient prescribed a controlled substance at discharge?: No
== END ==
LOC: PNWHC3 07:18
PROVIDERS: ATTEND Specialist
DX: M51.37 Other intervertebral disc degeneration, lumbosacral region (principal); M19.90 Unspecified osteoarthritis, unspecified site; F17.200 Nicotine dependence, unspecified, uncomplicated
CPT/HCPCS: 99211

== ENCOUNTER 2023-07-05 22:51 | Inpatient (IN) | payer BC ==
[2023-07-05] MEDS ORDERED: SODIUM CHLORIDE 0.9% 500 ML 500 ML IV STA ×2 (23:37→23:39)
[2023-07-05] MEDS ORDERED: MORPHINE SULFATE 4 MG/ML SYRINGE IV STA (23:39)
[2023-07-05] MEDS ORDERED: ONDANSETRON 4 MG/2 ML VIAL IVP STA (23:39)
--- NOTE | 2023-07-05 23:43 | ED ---
Abdominal Pain HPI - General Chief Complaint: Abdominal Pain Stated Complaint: Abdominal Pain Time Seen by Provider: 07/05/23 23:33 Source: patient Mode of arrival: ambulatory Limitations: no limitations - History of Present Illness Initial Comments: This patient is a 33-year-old man who presents to have evaluation of abdominal pain. He states that he was at work this afternoon approximately 3 PM when he noticed that there was pain to the left of the umbilicus. The pain then also seemed to involve the area just above the umbilicus. He states that it is a severe gas-like feeling. It seems to come in waves. He has also had nausea and vomiting. No hematemesis or coffee-ground material. Last bowel movement yesterday and was normal. He states that prior to the pain coming on he felt like he was urinating more frequently but there was no dysuria and no blood. MD Complaint: abdominal pain Onset/Timin -: hour(s) Location: periumbilical, LLQ Radiation: none Severity: severe Quality: other (Gas-like) Consistency: colicky Improves With: nothing Worsens With: nothing Associated Symptoms: nausea, vomiting - Related Data Previous Rx's Medication Instructions Recorded Acetaminophen Tab [Tylenol] 650 mg PO Q4HR PRN tab 07/08/23 Allergies Allergy/AdvReac Type Severity Reaction Status Date / Time No Known Allergies Allergy Verified 07/06/23 07:15 Review of Systems ROS Statement: Those systems with pertinent positive or pertinent negative responses have been documented in the HPI. ROS Other: All systems not noted in ROS Statement are negative. Constitutional: Denies: fever, chills, weakness Respiratory: Denies: cough, dyspnea Cardiovascular: Denies: chest pain, palpitations, edema Gastrointestinal: Reports: abdominal pain, nausea, vomiting. Denies: diarrhea, constipation, melena, hematochezia Genitourinary: Denies: dysuria, hematuria Musculoskeletal: Denies: back pain Skin: Denies: rash Neurological: Denies: headache, weakness Past Medical History Past Medical History: No Reported History History of Any Multi-Drug Resistant Organisms: MRSA Date of last positivie culture/infection: 01/11/2014 MDRO Source:: Eye Past Surgical History: Tonsillectomy Past Psychological History: No Psychological Hx Reported Smoking Status: Unknown if ever smoked Past Alcohol Use History: Occasional Past Drug Use History: None Reported - Past Family History Mother Additional Family Medical History / Comment(s): thyroid cancer Father Additional Family Medical History / Comment(s): DM 2, HTN General Exam Limitations: no limitations General appearance: alert, in no apparent distress Head exam: Present: atraumatic, normocephalic Eye exam: Present: normal appearance. Absent: scleral icterus, conjunctival injection Neck exam: Present: normal inspection Respiratory exam: Present: normal lung sounds bilaterally. Absent: respiratory distress, wheezes, rales, rhonchi, stridor, accessory muscle use Cardiovascular Exam: Present: regular rate, normal rhythm, normal heart sounds. Absent: systolic murmur, diastolic murmur, rubs, gallop GI/Abdominal exam: Present: soft, tenderness (Left lower quadrant and periumbilical). Absent: distended, guarding, rebound, rigid, mass, pulsatile mass Extremities exam: Present: normal inspection, normal capillary refill. Absent: pedal edema, calf tenderness Back exam: Present: normal inspection. Absent: CVA tenderness (R), CVA tenderness (L) Neurological exam: Present: alert Skin exam: Present: warm, dry, intact, normal color. Absent: rash Course Vital Signs 07/05/23 07/06/23 07/06/23 23:00 01:08 03:46 Temperature 98.4 F Pulse Rate 92 76 88 Respiratory 22 18 18 Rate Blood Pressure 150/102 138/95 121/65 O2 Sat by Pulse 98 98 98 Oximetry 07/06/23 07/06/23 07/06/23 06:04 08:30 09:34 Temperature 98.2 F Pulse Rate 72 80 78 Respiratory 18 18 18 Rate Blood Pressure 128/58 138/85 130/89 O2 Sat by Pulse 99 97 100 Oximetry 07/06/23 07/06/23 11:43 16:00 Temperature 98.5 F Pulse Rate 77 77 Respiratory 18 18 Rate Blood Pressure 133/94 133/85 O2 Sat by Pulse 99 100 Oximetry Medical Decision Making - Medical Decision Making Patient is 33-year-old man with abdominal pain, tenderness on the exam and therefore went for computed tomography scan. The scan does reveal, and my interpretation, dilated small bowel loop concerning for ileus versus early bowel obstruction. Patient admitted to have further symptom control and evaluation. Was pt. sent in by a medical professional or institution (Dr., PA, AIR CONDITIONING SHEET METAL INSTALLER, urgent care, hospital, or senior care...) When possible be specific @ -[No] Did you speak to anyone other than the patient for history (EMS, parent, family, police, friend...)? What history was obtained from this source @ -[No] Did you review nursing and triage notes (agree or disagree)? Why? @ -[I reviewed and agree with nursing and triage notes] Were old charts reviewed (outside hosp., previous admission, EMS record, old EKG, old radiological studies, urgent care reports/EKG's, senior care records)? Report findings @ -[No old charts were reviewed] Differential Diagnosis (chest pain, altered mental status, abdominal pain women, abdominal pain men, vaginal bleeding, weakness, fever, dyspnea, syncope, headache, dizziness, GI bleed, back pain, seizure, CVA, palpatations, mental health, musculoskeletal)? @ -[Differential Abdominal Pain Men: Appendicitis, cholecystitis, diverticulosis, ischemic bowel, pancreatitis, hepatitis, UTI, gastroenteritis, AAA, incarcerated hernia, bowel obstruction, constipation, inflammatory bowel, hepatitis, peptic ulcer disease, splenic infarction, perforated viscus, testicular torsion, this is not meant to be an all-inclusive list EKG interpreted by me (3pts min.). @ -[As above] X-rays interpreted by me (1pt min.). @ -[None done] CT interpreted by me (1pt min.). @ -[I interpreted as above U/S interpreted by me (1pt. min.). @ -[None done] What testing was considered but not performed or refused? (CT, X-rays, U/S, labs)? Why? @ -[None] What meds were considered but not given or refused? Why? @ -[None] Did you discuss the management of the patient with other professionals (professionals i.e. KRISTEN Taylor, AIR CONDITIONING SHEET METAL INSTALLER, lab, RT, psych nurse, dialysis social worker, cooler operator, teacher, animal park code enforcement officer, continuous pillowcase cutter)? Give summary @ -[Case discussed with admitting physician and treatment recommendations incorporated Was smoking cessation discussed for >3mins.? @ -[No] Was critical care preformed (if so, how long)? @ -[No] Were there social determinants of health that impacted care today? How? (Homelessness, low income, unemployed, alcoholism, drug addiction, transportation, low edu. Level, literacy, decrease access to med. care, alf, rehab)? @ -[No] Was there de-escalation of care discussed even if they declined (Discuss DNR or withdrawal of care, Hospice)? DNR status @ -[No] What co-morbidities impacted this encounter? (DM, HTN, Smoking, COPD, CAD, Cancer, CVA, ARF, Chemo, Hep., AIDS, mental health diagnosis, sleep apnea, morbid obesity)? @ -[None] Was patient admitted / discharged? Hospital course, mention meds given and route, prescriptions, significant lab abnormalities, going to OR and other pertinent info. @ -[See above Undiagnosed new problem with uncertain prognosis? @ -[No] Drug Therapy requiring intensive monitoring for toxicity (Heparin, Nitro, Insulin, Cardizem)? @ -[No] Were any procedures done? @ -[No] Diagnosis/symptom? @ -[Acute abdominal pain Acute ileus versus early small bowel obstruction Acute, or Chronic, or Acute on Chronic? @ -[Acute Uncomplicated (without systemic symptoms) or Complicated (systemic symptoms)? @ -[Uncomplicated Side effects of treatment? @ -[No] Exacerbation, Progression, or Severe Exacerbation? @ -[No] Poses a threat to life or bodily function? How? (Chest pain, [place], [place], pneumonia, PE, COPD, DKA, ARF, appy, cholecystitis, CVA, Diverticulitis, Homicidal, Suicidal, threat to staff... and all critical care pts) @ -[No] - Lab Data Result diagrams: 07/08/23 06:02 07/07/23 04:12 Lab Results 07/05/23 07/05/23 Range/Units 00:04 00:04 WBC 19.4 H (3.8-10.6) k/uL RBC 5.71 (4.30-5.90) m/uL Hgb 16.5 (13.0-17.5) gm/dL Hct 47.1 (39.0-53.0) % MCV 82.5 (80.0-100.0) fL MCH 28.9 (25.0-35.0) pg MCHC 35.1 (31.0-37.0) g/dL RDW 12.3 (11.5-15.5) % Plt Count 282 (150-450) k/uL MPV 8.4 Neutrophils % 78 % Lymphocytes % 13 % Monocytes % 6 % Eosinophils % 1 % Basophils % 0 % Neutrophils # 15.1 H (1.3-7.7) k/uL Lymphocytes # 2.5 (1.0-4.8) k/uL Monocytes # 1.1 H (0-1.0) k/uL Eosinophils # 0.2 (0-0.7) k/uL Basophils # 0.1 (0-0.2) k/uL Sodium 141 (137-145) mmol/L Potassium 4.1 (3.5-5.1) mmol/L Chloride 99 (98-107) mmol/L Carbon Dioxide 28 (22-30) mmol/L Anion Gap 14 mmol/L BUN 15 (9-20) mg/dL Creatinine 0.80 (0.66-1.25) mg/dL Est GFR (CKD-EPI)AfAm >90 (>60 ml/min/1.73 sqM) Est GFR (CKD-EPI)NonAf >90 (>60 ml/min/1.73 sqM) Glucose 94 (74-99) mg/dL Calcium 10.9 H (8.4-10.2) mg/dL Total Bilirubin 0.7 (0.2-1.3) mg/dL AST 23 (17-59) U/L ALT 22 (4-49) U/L Alkaline Phosphatase 92 (38-126) U/L Total Protein 8.4 H (6.3-8.2) g/dL Albumin 5.3 H (3.5-5.0) g/dL Amylase 80 (30-110) U/L Lipase 143 (23-300) U/L Disposition Clinical Impression: Intractable abdominal pain, Ileus Disposition: ADMITTED IP TO THIS [facility] Condition: Good Is patient prescribed a controlled substance at d/c from ED?: No
[2023-07-06 00:17] LABS: Basophils # (A) 0.1 k/uL (0-0.2); Basophils % (A) 0 %; Eosinophils # (A) 0.2 k/uL (0-0.7); Eosinophils % (A) 1 %; HCT 47.1 % (39.0-53.0); HGB 16.5 gm/dL (13.0-17.5); Lymphocytes # (A) 2.5 k/uL (1.0-4.8); Lymphocytes % (A) 13 %; MCH 28.9 pg (25.0-35.0); MCHC 35.1 g/dL (31.0-37.0); MCV 82.5 fL (80.0-100.0); Mean Platelet Volume 8.4; Monocytes # (A) 1.1 k/uL (0-1.0); Monocytes % (A) 6 %; Neutrophils # (A) 15.1 k/uL (1.3-7.7); Neutrophils % (A) 78 %; Platelet Count 282 k/uL (150-450); RBC 5.71 m/uL (4.30-5.90); RDW 12.3 % (11.5-15.5); WBC 19.4 k/uL (3.8-10.6)
--- NOTE | 2023-07-06 00:26 | CT ---
EXAM: CT Abdomen and Pelvis Without Intravenous Contrast CLINICAL HISTORY: ITS.REASON CT Reason: abdominal pain TECHNIQUE: Axial computed tomography images of the abdomen and pelvis without intravenous contrast. CTDI is 12 mGy and DLP is 692.2 mGy-cm. This CT exam was performed using one or more of the following dose reduction techniques: automated exposure control, adjustment of the mA and/or kV according to patient size, and/or use of iterative reconstruction technique. COMPARISON: No relevant prior studies available. FINDINGS: Lung bases: Unremarkable. No mass. No consolidation. ABDOMEN: Liver: Unremarkable. Gallbladder and bile ducts: Unremarkable. No calcified stones. No ductal dilation. Pancreas: Unremarkable. No ductal dilation. Spleen: Unremarkable. No splenomegaly. Adrenals: Unremarkable. No mass. Kidneys and ureters: Nonobstructing 8 mm RIGHT upper pole renal stone. Stomach and bowel: Diverticulosis, without acute diverticulitis. Prominent small bowel loop in the mid abdomen measuring 2.9 cm. No definite bowel obstruction. No free intraperitoneal air. PELVIS: Appendix: No findings to suggest acute appendicitis. Bladder: Decompressed urinary bladder. No stones. Reproductive: Unremarkable as visualized. ABDOMEN and PELVIS: Intraperitoneal space: Unremarkable. No free air. No significant fluid collection. Bones/joints: RIGHT femoral nail. No acute fracture. No dislocation. Soft tissues: Unremarkable. Vasculature: Unremarkable. No abdominal aortic aneurysm. Lymph nodes: Unremarkable. No enlarged lymph nodes. IMPRESSION: 1. Nonobstructing 8 mm RIGHT upper pole renal stone. 2. Diverticulosis, without acute diverticulitis. Prominent small bowel loop in the mid abdomen measuring 2.9 cm. No definite bowel obstruction. No free intraperitoneal air.
[2023-07-06 00:27] LABS: ALT 22 U/L (4-49); AST 23 U/L (17-59); African American GFR (CKD) >90 (>60 ml/min/1.73 sqM); Albumin 5.3 g/dL (3.5-5.0); Alkaline Phosphatase 92 U/L (38-126); Amylase 80 U/L (30-110); Anion Gap 14 mmol/L; Blood Urea Nitrogen 15 mg/dL (9-20); Calcium 10.9 mg/dL (8.4-10.2); Carbon Dioxide 28 mmol/L (22-30); Chloride 99 mmol/L (98-107); Glucose 94 mg/dL (74-99); Lipase 143 U/L (23-300); Non-African American GFR(CKD) >90 (>60 ml/min/1.73 sqM); Potassium 4.1 mmol/L (3.5-5.1); Sodium 141 mmol/L (137-145); Total Bilirubin 0.7 mg/dL (0.2-1.3); Total Protein 8.4 g/dL (6.3-8.2)
[2023-07-06] MEDS ORDERED: MORPHINE SULFATE 4 MG/ML SYRINGE IV STA (01:16)
[2023-07-06] MEDS ORDERED: ONDANSETRON 4 MG/2 ML VIAL IVP STA (01:18)
[2023-07-06] MEDS ORDERED: SODIUM CHLORIDE 0.9% 1,000 ML IV STA (01:18)
[2023-07-06] MEDS ORDERED: HYDROmorphone 1 MG/ML 1 ML SYRINGE IVP STA (02:31)
[2023-07-06] MEDS ORDERED: NALOXONE 0.4 MG/ML 1 ML VIAL IV PRN (04:03)
[2023-07-06] MEDS ORDERED: ONDANSETRON 4 MG/2 ML VIAL IVP PRN (04:15)
[2023-07-06] MEDS: SODIUM CHLORIDE 0.9% 1,000 ML IV SCH ×3 (04:20→21:53)
[2023-07-06] MEDS ORDERED: PANTOPRAZOLE 40 MG/10 ML VIAL IVP ONE (06:03)
[2023-07-06] MEDS ORDERED: ACETAMINOPHEN TAB 325 MG TAB PO PRN (06:07)
[2023-07-06] MEDS ORDERED: MAG HYDROX/AL HYDROX/SIMETH 30 ML CUP PO PRN (06:07)
--- NOTE | 2023-07-06 06:14 | P.HPIM ---
History of Present Illness H&P Date: 07/06/23 Chief Complaint: abd pain 33-year-old male no significant past medical history Patient coming in for acute onset abdominal pain started 3 PM yesterday he described the pain as periumbilical colicky severe pain 8 out of 10 in severity he decided to rest initially but then started feeling very nauseous and started throwing up dinner from the night before that's when he got very concerned and started worrying about appendicitis decided to come into the hospital for evaluation and reports nausea and vomiting food content, denies any fevers or chills denies any diarrhea denies any urinary changes denies any chest pain or trouble breathing or reports that he had dinner the night before with friends none of them feels sick. Patient admits to vague pain denies any illicit drugs or heavy alcohol review of systems Pertinent positives as noted in HPI. All other systems were reviewed and are negative on exam Constitutional: No acute distress, conversant, pleasant Eyes: Anicteric sclerae, moist conjunctiva, Pupils equal round reactive to light ENMT: NC/AT Oropharynx clear, no erythema, or exudates Neck: Supple, no masses, or JVD No carotid bruits No thyromegaly Lungs: Clear to auscultation Clear to percussion Normal respiratory effort, no accessory muscle use Cardiovascular: Heart regular in rate and rhythm, No murmurs, gallops, or rubs No peripheral edema Abdominal: Soft Discomfort to deep palpation around upper and mid abdomen, no guarding, rebound or rigidity Abdomen moving with respiration Normoactive bowel sounds No hepatomegaly, No splenomegaly No palpable mass No abdominal wall hernia noted Skin: Normal temperature, tone, texture, turgor No induration No subcutaneous nodules No rash, lesions No ulcers Extremities: No digital cyanosis No clubbing Pedal pulses intact and symmetrical Radial pulses intact and symmetrical No calf tenderness Psychiatric: Alert and oriented to person, place and time Appropriate affect fair judgement Neuro Muscles Strength 5/5 in all 4 extremities Sensation to light touch grossly present throughout Cranial nerves II-XII grossly intact Lymphatics: no palpable cervical or supraclavicular lymph nodes Past Medical History Past Medical History: No Reported History History of Any Multi-Drug Resistant Organisms: MRSA Date of last positivie culture/infection: 01/11/2014 MDRO Source:: Eye Past Surgical History: Tonsillectomy Past Psychological History: No Psychological Hx Reported Smoking Status: Unknown if ever smoked Past Alcohol Use History: Occasional Past Drug Use History: None Reported - Past Family History Mother Additional Family Medical History / Comment(s): thyroid cancer Father Additional Family Medical History / Comment(s): DM 2, HTN Medications and Allergies Home Medications Medication Instructions Recorded Confirmed Type Famotidine [Pepcid] 20 mg PO DAILY 30 Days #30 tab 12/05/18 06/23/23 Rx Melatonin 1 mg PO HS tab 12/05/18 06/23/23 Rx Naltrexone HCl [Revia] 50 mg PO 2100 30 Days #30 tab 12/05/18 06/23/23 Rx Nicotine 21Mg/24Hr Patch [Habitrol] 1 patch TRANSDERM DAILY 30 Days 12/05/18 06/23/23 Rx #30 patch Sertraline [Zoloft] 50 mg PO 2100 #30 tab 12/05/18 06/23/23 Rx buPROPion XL [Wellbutrin XL] 150 mg PO DAILY 30 Days #30 12/05/18 06/23/23 Rx tab.er.24h Allergies Allergy/AdvReac Type Severity Reaction Status Date / Time No Known Allergies Allergy Verified 07/05/23 23:05 Physical Exam Vitals: Vital Signs Temp Pulse Resp BP Pulse Ox 07/06/23 06:04 72 18 128/58 99 07/06/23 03:46 88 18 121/65 98 07/06/23 01:08 76 18 138/95 98 07/05/23 23:00 98.4 F 92 22 150/102 98 Intake and Output 07/05/23 07/05/23 07/06/23 14:59 22:59 06:59 Other: Weight 95.254 kg Results CBC & Chem 7: 07/05/23 00:04 07/05/23 00:04 Labs: Abnormal Lab Results - Last 24 Hours (Table) 07/05/23 07/05/23 Range/Units 00:04 00:04 WBC 19.4 H (3.8-10.6) k/uL Neutrophils # 15.1 H (1.3-7.7) k/uL Monocytes # 1.1 H (0-1.0) k/uL Calcium 10.9 H (8.4-10.2) mg/dL Total Protein 8.4 H (6.3-8.2) g/dL Albumin 5.3 H (3.5-5.0) g/dL Assessment and Plan Assessment: 33-year-old male no significant past medical history coming in for abdominal pain and vomiting I discussed the case with the ED doctor and accepted the admission for ileus for surgical evaluation anticipated length of stay less than 2 midnights Severe abdominal pain suspected ileus CAT scan of the abdomen showed right upper pole nonobstructive kidney stone, diverticulosis without diverticulitis, prominent small bowel loops in the mid abdomen Nothing by mouth IV fluid hydration normal saline Symptomatic control of nausea vomiting with Zofran when necessary Symptomatic control of pain with morphine General surgery consult Blood work showed Leukocytosis white count 19.4 afebrile Hemoglobin 16.5 unremarkable Renal function unremarkable Sodium 141 potassium 4.1 the bun 15 creatinine 0.8 Hypercalcemia Calcium 10.9 Continue with IV fluid hydration normal saline Repeat level in the morning if continues to be elevated we'll consider further workup Full code DVT prophylaxis heparin subcu 3 times a day
[2023-07-06] MEDS: HYDROmorphone 1 MG/ML 1 ML SYRINGE IVP PRN ×4 (06:27→20:55)
[2023-07-06] MEDS: PANTOPRAZOLE 40 MG TABLET PO SCH (06:36)
[2023-07-06 07:39] LABS: Appearance,Urine Clear (Clear); Color,Urine Yellow; PH, Urine 6.5 (5.0-8.0); Specific Gravity,Urine 1.025 (1.001-1.035)
[2023-07-06 07:43] LABS: Bilirubin,Urine Negative (Negative); Blood,Urine Negative (Negative); Glucose,Urine (UA) Negative (Negative); Ketones,Urine Negative (Negative); Leukocyte Esterase,Urine Negative (Negative); Nitrite,Urine Negative (Negative); Protein,Urine Negative (Negative); Urobilinogen,Urine <2.0 mg/dL (<2.0)
[2023-07-06] MEDS: HEPARIN SODIUM,PORCINE 5,000 UNIT/ML 1 ML VIAL SQ SCH ×3 (09:45→23:22)
[2023-07-06 10:31] LABS: Basophils # (A) 0.1 k/uL (0-0.2); Basophils % (A) 0 %; Eosinophils # (A) 0.1 k/uL (0-0.7); Eosinophils % (A) 1 %; HGB 15.5 gm/dL (13.0-17.5); Lymphocytes # (A) 1.7 k/uL (1.0-4.8); Lymphocytes % (A) 9 %; MCH 28.7 pg (25.0-35.0); MCHC 33.7 g/dL (31.0-37.0); Mean Platelet Volume 8.3; Monocytes # (A) 1.1 k/uL (0-1.0); Monocytes % (A) 6 %; Neutrophils % (A) 82 %; Platelet Count 248 k/uL (150-450); RBC 5.41 m/uL (4.30-5.90); RDW 12.2 % (11.5-15.5); WBC 18.3 k/uL (3.8-10.6)
[2023-07-06] MEDS ORDERED: IOPAMIDOL CONTRAST (ORAL USE) VIAL PO PRN (13:01)
--- NOTE | 2023-07-06 13:05 | P.GSCN ---
History of Present Illness Consult date: 07/06/23 History of present illness: CHIEF COMPLAINT: Abdominal pain HISTORY OF PRESENT ILLNESS: This is a 33-year-old male who presents to us with complaints of abdominal pain to the left of the umbilicus admitted to the lindleyy button and then to the lower right of the abdomen. She also has epigastric tenderness. He has been having nausea and did have a couple episodes of v omiting in the ER. This did occur after medications given. He has been having hot sweats with the pain. He has had regular bowel movements. Denies any prior abdominal surgeries. Computed tomography scan abdomen and pelvis did reveal prominent small bowel loop in the mid abdomen measuring 2.9 cm. White count was elevated. Surgical service consulted for abdominal pain and ileus. PAST MEDICAL HISTORY: MRSA eye infection PAST SURGICAL HISTORY: Tonsillectomy MEDICATIONS: See below ALLERGIES: See below SOCIAL HISTORY: No illicit drug use. REVIEW OF SYSTEMS: CONSTITUTIONAL: Denies fever or chills. HEENT: Denies blurred vision, vision changes, or eye pain. Denies hemoptysis CARDIOVASCULAR: Denies chest pain or pressure. RESPIRATORY: No shortness of breath. GASTROINTESTINAL: See HPI for pertinent findings HEMATOLOGIC: Denies bleeding disorders. GENITOURINARY: Denies any blood in urine or increased urinary frequency. SKIN: Denies pruitis. Denies rash. PHYSICAL EXAM: VITAL SIGNS: Reviewed GENERAL: Well-developed in no acute distress. ABDOMEN: Soft. Nondistended. Tenderness with palpation of the epigastric area and left of the umbilicus. NEUROLOGIC: Alert and oriented. Cranial nerves II through XII grossly intact. LABORATORY DATA: WBC 19.4-18.3 Hgb 15.5 platelets 248 Na 141 potassium 4.1 creatinine 0.80 Lactic acid 1.6 Lipase 143 Urinalysis negative IMAGING: Computed tomography scan abdomen and pelvis obstructing 8mm right upper pole renal stone. Diverticulosis without acute diverticulitis. Prominent small bowel loop in the mid abdomen measuring 2.9 cm. No definite bowel obstruction. No free intraperitoneal air. ASSESSMENT: 1. Abdominal pain 2. Prominent small bowel loop in the mid abdomen noted on computed tomography scan 3. Leukocytosis PLAN: -Repeat computed tomography scan abdomen and pelvis with oral contrast for further evaluation of patient's abdominal pain -Add IV Zosyn -Keep patient NPO -Repeat CBC in AM -Continue IV fluids -Continue pain management -Continue supportive care Physician Technical Service Rep note has been reviewed by physician. Signing provider agrees with the documented findings, assessment, and plan of care. Past Medical History Past Medical History: No Reported History History of Any Multi-Drug Resistant Organisms: MRSA Year Discovered:: 01/11/2014 MDRO Source:: Eye Past Surgical History: Tonsillectomy Past Psychological History: No Psychological Hx Reported Smoking Status: Unknown if ever smoked Past Alcohol Use History: Occasional Past Drug Use History: None Reported - Past Family History Mother Additional Family Medical History / Comment(s): thyroid cancer Father Additional Family Medical History / Comment(s): DM 2, HTN Medications and Allergies Home Medications Medication Instructions Recorded Confirmed Type No Known Home Medications 07/06/23 07/06/23 History Allergies Allergy/AdvReac Type Severity Reaction Status Date / Time No Known Allergies Allergy Verified 07/06/23 07:15 Surgical - Exam Vital Signs Temp Pulse Resp BP Pulse Ox 98.4 F 92 22 150/102 98 07/05/23 23:00 07/05/23 23:00 07/05/23 23:00 07/05/23 23:00 07/05/23 23:00 Results - Labs 07/06/23 08:56 07/05/23 00:04 Abnormal Lab Results - Last 24 Hours (Table) 07/05/23 07/05/23 07/06/23 Range/Units 00:04 00:04 08:56 WBC 19.4 H 18.3 H (3.8-10.6) k/uL Neutrophils # 15.1 H 15.0 H (1.3-7.7) k/uL Monocytes # 1.1 H 1.1 H (0-1.0) k/uL Calcium 10.9 H (8.4-10.2) mg/dL Total Protein 8.4 H (6.3-8.2) g/dL Albumin 5.3 H (3.5-5.0) g/dL Diabetes panel 07/05/23 Range/Units 00:04 Sodium 141 (137-145) mmol/L Potassium 4.1 (3.5-5.1) mmol/L Chloride 99 (98-107) mmol/L Carbon Dioxide 28 (22-30) mmol/L BUN 15 (9-20) mg/dL Creatinine 0.80 (0.66-1.25) mg/dL Glucose 94 (74-99) mg/dL Calcium 10.9 H (8.4-10.2) mg/dL AST 23 (17-59) U/L ALT 22 (4-49) U/L Alkaline Phosphatase 92 (38-126) U/L Total Protein 8.4 H (6.3-8.2) g/dL Albumin 5.3 H (3.5-5.0) g/dL Calcium panel 07/05/23 Range/Units 00:04 Calcium 10.9 H (8.4-10.2) mg/dL Albumin 5.3 H (3.5-5.0) g/dL Pituitary panel 07/05/23 Range/Units 00:04 Sodium 141 (137-145) mmol/L Potassium 4.1 (3.5-5.1) mmol/L Chloride 99 (98-107) mmol/L Carbon Dioxide 28 (22-30) mmol/L BUN 15 (9-20) mg/dL Creatinine 0.80 (0.66-1.25) mg/dL Glucose 94 (74-99) mg/dL Calcium 10.9 H (8.4-10.2) mg/dL Adrenal panel 07/05/23 Range/Units 00:04 Sodium 141 (137-145) mmol/L Potassium 4.1 (3.5-5.1) mmol/L Chloride 99 (98-107) mmol/L Carbon Dioxide 28 (22-30) mmol/L BUN 15 (9-20) mg/dL Creatinine 0.80 (0.66-1.25) mg/dL Glucose 94 (74-99) mg/dL Calcium 10.9 H (8.4-10.2) mg/dL Total Bilirubin 0.7 (0.2-1.3) mg/dL AST 23 (17-59) U/L ALT 22 (4-49) U/L Alkaline Phosphatase 92 (38-126) U/L Total Protein 8.4 H (6.3-8.2) g/dL Albumin 5.3 H (3.5-5.0) g/dL
[2023-07-06] MEDS: PIPERACILLIN-TAZOBACTAM 3.375 GM in SODIUM CHLORIDE 0.9% 100 ML IVPB SCH ×2 (15:42→23:22)
--- NOTE | 2023-07-06 15:51 | CT ---
EXAMINATION TYPE: CT abdomen pelvis wo con DATE OF EXAM: 07/06/2023 COMPARISON: 07/05/2023 HISTORY: 33-year-old male nausea, abdominal pain CT DLP: 694.2 mGycm. Automated exposure control for dose reduction was used. TECHNIQUE: Contiguous axial scanning of the abdomen and pelvis without IV contrast. Coronal and sagit venessa reconstructions performed. FINDINGS: LUNG BASES: No significant abnormality is appreciated. LIVER/GB: No significant abnormality is appreciated. PANCREAS: No significant abnormality is seen. SPLEEN: No significant abnormality is seen. ADRENALS: No significant abnormality is seen. KIDNEYS: 8 mm nonobstructive right renal calculus. No hydronephrosis on either side. BOWEL: While the transition point is difficult to clearly identify. The dilated jejunal loops in the left side of the abdomen measuring up to 4.0 cm with air-fluid levels and associated mild mesenteric edema in conjunction with collapsed distal small bowel loops is suggestive of small bowel obstruction . Scattered mild stool. Sigmoid diverticulosis without acute diverticulitis. LYMPH NODES: No significant abnormality is seen. OTHER: Trace perihepatic ascites. Trace ascites fluid right lower quadrant. PELVIS: Prostate gland mildly enlarged at 4.4 cm wide. Bladder urine distended. There is mild pelvic free fluid. BONES: No significant abnormality is seen. IMPRESSION: 1. Developing high-grade small bowel obstruction. Transition point difficult to clearly delineate, l ikely somewhere in the anterior midline mid to lower abdomen. Small bowel loops dilated up to 4.0 cm. 2. Associated mild mesenteric edema and trace reactive ascites fluid. 3. 8 mm nonobstructive right renal stone.
[2023-07-06 16:06] LABS: ALT 16 U/L (10-49); AST 13 U/L (14-35); Albumin 4.8 d/dL (3.8-4.9); Albumin/Globulin Ratio 2.18 Ratio (1.60-3.17); Alkaline Phosphatase 87 U/L (41-126); Blood Urea Nitrogen 11.7 mg/dL (9.0-27.0); Calcium 10.4 mg/dL (8.7-10.3); Carbon Dioxide 26.6 mmol/L (21.6-31.8); Chloride 103 mmol/L (96-109); Globulin 2.2 d/dL (1.6-3.3); Glucose 101 mg/dL (70-110); Potassium 5.1 mmol/L (3.5-5.5); Sodium 142 mmol/L (135-145); Total Bilirubin 0.5 mg/dL (0.3-1.2)
[2023-07-07] MEDS: SODIUM CHLORIDE 0.9% 1,000 ML IV SCH ×3 (03:32→21:00)
[2023-07-07] MEDS: PANTOPRAZOLE 40 MG TABLET PO SCH (06:26)
[2023-07-07] MEDS: HYDROmorphone 1 MG/ML 1 ML SYRINGE IVP PRN ×3 (07:43→19:19)
[2023-07-07] MEDS: PIPERACILLIN-TAZOBACTAM 3.375 GM in SODIUM CHLORIDE 0.9% 100 ML IVPB SCH ×3 (07:52→23:07)
[2023-07-07] MEDS: HEPARIN SODIUM,PORCINE 5,000 UNIT/ML 1 ML VIAL SQ SCH ×3 (07:54→23:07)
[2023-07-07 09:12] LABS: Blood Urea Nitrogen 13.2 mg/dL (9.0-27.0); Calcium 9.1 mg/dL (8.7-10.3); Carbon Dioxide 25.1 mmol/L (21.6-31.8); Chloride 103 mmol/L (96-109); Glucose 90 mg/dL (70-110); Potassium 4.2 mmol/L (3.5-5.5); Sodium 138 mmol/L (135-145)
[2023-07-07 09:22] LABS: Basophils # (A) 0.08 X 10*3/uL (0.00-0.10); Basophils % (A) 0.7 %; Eosinophils # (A) 0.41 X 10*3/uL (0.04-0.35); Eosinophils % (A) 3.8 %; HCT 39.6 % (39.6-50.0); HGB 13.4 d/dL (13.0-17.0); Lymphocytes % (A) 28.9 %; MCH 28.3 pg (27.0-32.0); MCHC 33.8 d/dL (32.0-37.0); MCV 83.5 FL (80.0-97.0); Mean Platelet Volume 10.4 FL (9.5-12.2); Monocytes # (A) 0.94 X 10*3/uL (0.20-1.00); Monocytes % (A) 8.8 %; NRBC Per 100 WBC 0 X 10*3/uL (0.00-0.01); Neutrophils # (A) 6.12 X 10*3/uL (1.80-7.70); Neutrophils % (A) 57.1 %; Platelet Count 233 X 10*3/uL (140-440); RBC 4.74 X 10*6/uL (4.40-5.60); RDW 11.9 % (11.5-14.5); WBC 10.72 X 10*3/uL (4.50-10.00)
--- NOTE | 2023-07-07 12:46 | P.PN ---
Subjective Progress Note Date: 07/07/23 No new complaints. Pt says he's passing flatus, abd pain improved, no nausea. Gen: awake, alert HEENT: normocephalic, atraumatic, good hearing acuity, moist mucous membranes Resp: good air exchange, breathing comfortably with no accessory muscle use CVS: good distal perfusion x 4, GI: soft, NTTP, ND : no SPT, no CVAT, worley catheter not present MSK: no pitting edema, no clubbing Neuro: non-focal, moving all extremities Psych: cooperative, euthymic mood Hospital Course: 33-year-old male no significant past medical history presented for acute onset abdominal pain. Patient was noted to have suspicion of SBO as noted on CT A/P. He was admitted with general surgery consultation. He was made NPO then transitioned to CLD. Assessment/plan: Severe abdominal pain suspected SBO General surgery consult NPO --> CLD IV fluid hydration normal saline Symptomatic control of nausea vomiting with Zofran when necessary Symptomatic control of pain with morphine Hypercalcemia Calcium 10.9 --> 9.1 Continue with IV fluid hydration normal saline Full code DVT prophylaxis heparin subcu 3 times a day Objective - Vital Signs Vital signs: Vital Signs Temp 98.0 F 07/07/23 07:12 Pulse 71 07/07/23 07:12 Resp 14 07/07/23 07:12 BP 106/67 07/07/23 07:12 Pulse Ox 99 07/07/23 07:12 FiO2 Intake & Output 07/06/23 07/07/23 07/07/23 18:59 06:59 18:59 Intake Total 1560 700 Balance 1560 700 Weight 95.254 kg Intake: Intake, IV Titration 1560 700 Amount Piperacillin-Tazobactam 3 100 .375 gm In Sodium Chloride 0.9% 100 ml @ 25 mls/hr IVPB Q8HR [facility] Rx# :[id number] Sodium Chloride 0.9% 1, 1560 000 ml @ 130 mls/hr IV . Q7H42M [facility] Rx#:[id number] Sodium Chloride 0.9% 1, 600 000 ml @ 75 mls/hr IV . [id number] [facility] Rx#:[id number] - Labs CBC & Chem 7: 07/07/23 04:12 07/07/23 04:12 Labs: Abnormal Lab Results - Last 24 Hours (Table) 07/06/23 07/07/23 Range/Units 08:56 04:12 WBC 10.72 H (4.50-10.00) X 10*3/uL Eosinophils # 0.41 H (0.04-0.35) X 10*3/uL Anion Gap 12.40 H (4.00-12.00) mmol/L Calcium 10.4 H (8.7-10.3) mg/dL AST 13 L (14-35) U/L
--- NOTE | 2023-07-07 13:59 | P.PN ---
Subjective Progress Note Date: 07/07/23 CHIEF COMPLAINT: Abdominal pain HISTORY OF PRESENT ILLNESS: She presented with abdominal pain left side of the umbilicus. He reports that the pain has decreased. He is having flatus. No bowel movement. Denies any nausea or vomiting. He did have a repeat computed tomography scan with oral contrast that reported developing high-grade small bowel obstruction. Afebrile. WBC is down from 18-10.7 hgb 13.4 platelets 233 sodium 138 potassium 4.2 creatinine 0.8 PHYSICAL EXAM: VITAL SIGNS: Reviewed. GENERAL: Well-developed in no acute distress. ABDOMEN: Soft. Nondistended. Mild tenderness to palpation of the umbilicus and the left of the umbilicus. NEUROLOGIC: Alert and oriented. Cranial nerves II through XII grossly intact. ASSESSMENT: 1. Abdominal pain. Computed tomography scan of the abdomen reported developing high-grade small bowel obstruction. Patient's pain is improving. He is having flatus. 2. Leukocytosis PLAN: -No plans for surgery at this time. Patient's pain has improved. And he is having flatus. -Patient started on clear liquid diet this morning. He has tolerated the clear liquids without any increase in pain or nausea -Advance diet to full liquids for dinner -Repeat CBC in AM -Continue supportive care -Encourage patient to ambulate -Continue antibiotics -IV fluids decreased -DVT prophylaxis subcu heparin Physician Due Diligence Coordinator note has been reviewed by physician. Signing provider agrees with the documented findings, assessment, and plan of care. Objective - Vital Signs Vital signs: Vital Signs Temp 98.0 F 07/07/23 07:12 Pulse 71 07/07/23 07:12 Resp 14 07/07/23 07:12 BP 106/67 07/07/23 07:12 Pulse Ox 99 07/07/23 07:12 FiO2 Intake & Output 07/06/23 07/07/23 07/07/23 18:59 06:59 18:59 Intake Total 1560 700 Balance 1560 700 Weight 95.254 kg Intake: Intake, IV Titration 1560 700 Amount Piperacillin-Tazobactam 3 100 .375 gm In Sodium Chloride 0.9% 100 ml @ 25 mls/hr IVPB Q8HR [facility] Rx# :[id number] Sodium Chloride 0.9% 1, 1560 000 ml @ 130 mls/hr IV . Q7H42M [facility] Rx#:[id number] Sodium Chloride 0.9% 1, 600 000 ml @ 75 mls/hr IV . [id number] [facility] Rx#:[id number] - Labs CBC & Chem 7: 07/07/23 04:12 07/07/23 04:12 Labs: Abnormal Lab Results - Last 24 Hours (Table) 07/06/23 07/07/23 Range/Units 08:56 04:12 WBC 10.72 H (4.50-10.00) X 10*3/uL Eosinophils # 0.41 H (0.04-0.35) X 10*3/uL Anion Gap 12.40 H (4.00-12.00) mmol/L Calcium 10.4 H (8.7-10.3) mg/dL AST 13 L (14-35) U/L
[2023-07-08] MEDS: PANTOPRAZOLE 40 MG TABLET PO SCH (06:14)
[2023-07-08] MEDS: HEPARIN SODIUM,PORCINE 5,000 UNIT/ML 1 ML VIAL SQ SCH (08:52)
[2023-07-08] MEDS: PIPERACILLIN-TAZOBACTAM 3.375 GM in SODIUM CHLORIDE 0.9% 100 ML IVPB SCH (08:52)
[2023-07-08 11:02] LABS: Basophils % (A) 1.2 %; Eosinophils # (A) 0.49 X 10*3/uL (0.04-0.35); HCT 40.6 % (39.6-50.0); HGB 13.8 d/dL (13.0-17.0); Lymphocytes # (A) 2.66 X 10*3/uL (0.90-5.00); Lymphocytes % (A) 32.4 %; MCV 82.4 FL (80.0-97.0); Mean Platelet Volume 10.6 FL (9.5-12.2); Monocytes # (A) 0.78 X 10*3/uL (0.20-1.00); Monocytes % (A) 9.5 %; NRBC Per 100 WBC 0 X 10*3/uL (0.00-0.01); Neutrophils # (A) 4.09 X 10*3/uL (1.80-7.70); Neutrophils % (A) 49.7 %; Platelet Count 235 X 10*3/uL (140-440); RBC 4.93 X 10*6/uL (4.40-5.60); RDW 11.9 % (11.5-14.5); WBC 8.22 X 10*3/uL (4.50-10.00)
--- NOTE | 2023-07-08 11:07 | P.PN ---
Subjective Progress Note Date: 07/08/23 No new complaints. Pt says he's passing stools and flatus, abd pain improved, no nausea. Gen: awake, alert HEENT: normocephalic, atraumatic, good hearing acuity, moist mucous membranes Resp: good air exchange, breathing comfortably with no accessory muscle use CVS: good distal perfusion x 4, GI: soft, NTTP, ND : no SPT, no CVAT, worley catheter not present MSK: no pitting edema, no clubbing Neuro: non-focal, moving all extremities Psych: cooperative, euthymic mood Hospital Course: 33-year-old male no significant past medical history presented for acute onset abdominal pain. Patient was noted to have suspicion of SBO as noted on CT A/P. He was admitted with general surgery consultation. He was made NPO then transitioned to CLD, now on FLD. Assessment/plan: Severe abdominal pain suspected SBO General surgery consult NPO --> CLD --> FLD IV fluid hydration normal saline Symptomatic control of nausea vomiting with Zofran when necessary Symptomatic control of pain with morphine Hypercalcemia, resolved Calcium 10.9 --> 9.1 Continue with IV fluid hydration normal saline Full code DVT prophylaxis heparin subcu 3 times a day Objective - Vital Signs Vital signs: Vital Signs Temp 97.4 F L 07/08/23 07:12 Pulse 70 07/08/23 07:12 Resp 18 07/08/23 07:12 BP 110/71 07/08/23 07:12 Pulse Ox 99 07/08/23 07:12 FiO2 Intake & Output 07/07/23 07/08/23 07/08/23 18:59 06:59 18:59 Intake Total 700 1560 120 Balance 700 1560 120 Intake: Intake, IV Titration 700 1560 Amount Piperacillin-Tazobactam 3 100 .375 gm In Sodium Chloride 0.9% 100 ml @ 25 mls/hr IVPB Q8HR [facility] Rx# :[id number] Sodium Chloride 0.9% 1, 1560 000 ml @ 130 mls/hr IV . Q7H42M [facility] Rx#:[id number] Sodium Chloride 0.9% 1, 600 000 ml @ 75 mls/hr IV . [id number] [facility] Rx#:[id number] Oral 120 Other: Voiding Method Toilet # Bowel Movements 2 - Labs CBC & Chem 7: 07/08/23 06:02 07/07/23 04:12 Labs: Abnormal Lab Results - Last 24 Hours (Table) 07/08/23 Range/Units 06:02 Eosinophils # 0.49 H (0.04-0.35) X 10*3/uL
[2023-07-08] MEDS: SODIUM CHLORIDE 0.9% 1,000 ML IV SCH (11:14)
--- NOTE | 2023-07-08 12:20 | P.PN ---
Subjective Progress Note Date: 07/08/23 CHIEF COMPLAINT: Abdominal pain HISTORY OF PRESENT ILLNESS: Patient presented with abdominal pain left side of the umbilicus. Patient feels much better today. He reports only having minimal pain. He is having bowel movements and flatus. Denies any nausea vomiting. He has been tolerating a full liquid diet. Patient reports pain has moved towards left lower quadrant and has minimal discomfort. Afebrile. WBC 10.72 down to 8.22 PHYSICAL EXAM: VITAL SIGNS: Reviewed. GENERAL: Well-developed in no acute distress. ABDOMEN: Soft. Nondistended. Mild tenderness left lower quadrant NEUROLOGIC: Alert and oriented. Cranial nerves II through XII grossly intact. ASSESSMENT: 1. Abdominal pain. Computed tomography scan of the abdomen reported developing high-grade small bowel obstruction. Patient's pain has improved. He is having flatus. 2. Leukocytosis resolved PLAN: -No surgical intervention planned -Patient can be discharged from surgical standpoint -Recommend outpatient follow-up with Dr. claire in 1 week -Continue full liquid diet for the next 24 hours and then advance as tolerated Physician Fire Extinguisher Charger note has been reviewed by physician. Signing provider agrees with the documented findings, assessment, and plan of care. Objective - Vital Signs Vital signs: Vital Signs Temp 97.4 F L 07/08/23 07:12 Pulse 70 07/08/23 07:12 Resp 18 07/08/23 07:12 BP 110/71 07/08/23 07:12 Pulse Ox 99 07/08/23 07:12 FiO2 Intake & Output 07/07/23 07/08/23 07/08/23 18:59 06:59 18:59 Intake Total 700 1560 120 Balance 700 1560 120 Intake: Intake, IV Titration 700 1560 Amount Piperacillin-Tazobactam 3 100 .375 gm In Sodium Chloride 0.9% 100 ml @ 25 mls/hr IVPB Q8HR [facility] Rx# :[id number] Sodium Chloride 0.9% 1, 1560 000 ml @ 130 mls/hr IV . Q7H42M [facility] Rx#:[id number] Sodium Chloride 0.9% 1, 600 000 ml @ 75 mls/hr IV . [id number] [facility] Rx#:[id number] Oral 120 Other: Voiding Method Toilet # Bowel Movements 2 - Labs CBC & Chem 7: 07/08/23 06:02 07/07/23 04:12 Labs: Abnormal Lab Results - Last 24 Hours (Table) 07/08/23 Range/Units 06:02 Eosinophils # 0.49 H (0.04-0.35) X 10*3/uL
--- NOTE | 2023-07-08 13:00 | P.DS ---
Providers Date of admission: 07/06/23 04:03 Expected date of discharge: 07/08/23 Attending physician: Vishal Regan MD Consults: 07/06/23 04:03 Consult Physician Routine Consulting Provider: Nghia Maldonado Consult Reason/Comments: Intractable abdominal pain. Ileus Do you want consulting provider notified?: Yes Primary care physician: Mir[facility] Course: Severe abdominal pain suspected SBO Hypercalcemia, resolved Hospital Course: 33-year-old male no significant past medical history presented for acute onset abdominal pain. Patient was noted to have suspicion of SBO as noted on CT A/P. He was admitted with general surgery consultation. He was made NPO then transitioned to CLD, then FLD and was able to tolerate this without nausea, vomiting, pain. He did have repeat CT A/P which showed possibility of SBO, however, he also passed several BMs c/w resolving SBO. He will f/u with PCP. Gen: awake, alert HEENT: normocephalic, atraumatic, good hearing acuity, moist mucous membranes Resp: good air exchange, breathing comfortably with no accessory muscle use CVS: good distal perfusion x 4, GI: soft, NTTP, ND : no SPT, no CVAT, worley catheter not present MSK: no pitting edema, no clubbing Neuro: non-focal, moving all extremities Psych: cooperative, euthymic mood Patient Condition at Discharge: Good Plan - Discharge Summary Discharge Rx Participant: No New Discharge Prescriptions: New Acetaminophen Tab [Tylenol] 650 mg PO Q4HR PRN tab PRN Reason: Fever And/ Or Pain Discharge Medication List Acetaminophen Tab [Tylenol] 650 mg PO Q4HR PRN tab 07/08/23 [Rx] Follow up Appointment(s)/Referral(s): Mirtha Gil NPC [STAFF PHYSICIAN] - 1-2 days Nghia Maldonado MD [STAFF PHYSICIAN] - 1 Week Patient Instructions/Handouts: Diverticulosis (DC), Diverticulitis Diet (DC), Bowel Obstruction (DC) Activity/Diet/Wound Care/Special Instructions: Stay on Full liquids for the next 24 hours and then advance as tolerated Discharge Disposition: HOME SELF-CARE
[2023-07-08 14:36] VITALS: BP 126/77; PULSE 71; RESP 17; TEMP 97.8
== END 2023-07-08 14:53 | disposition home or self-care (01) | DRG 390 ==
LOC: EC 22:51 → 4SSUR 07-06 04:03
PROVIDERS: ADMIT Internal Medicine; ATTEND Internal Medicine
DX: K56.609 Unspecified intestinal obstruction, unspecified as to partial versus complete obstruction (principal); E83.52 Hypercalcemia; D72.829 Elevated white blood cell count, unspecified; K57.30 Diverticulosis of large intestine without perforation or abscess without bleeding; N20.0 Calculus of kidney; Z79.899 Other long term (current) drug therapy; Z82.49 Family history of ischemic heart disease and other diseases of the circulatory system; Z86.14 Personal history of Methicillin resistant Staphylococcus aureus infection; K56.7 Ileus, unspecified
CPT/HCPCS: 36415; 74176; 80048; 80053; 81003; 82150; 83605; 83690; 83735; 85025; 96361; 96365; 96366; 96372; 96375; 96376; 99285

== ENCOUNTER 2023-07-23 08:13 | Day surgery (SDC) | payer BC ==
[2023-07-23] MEDS ORDERED: LACTATED RINGERS 1,000 ML IV ONE (08:28)
[2023-07-23 08:43] VITALS: TEMP 96.9
[2023-07-23] MEDS ORDERED: fentaNYL (PF) 50 MCG/ML 2 ML AMP ONE (09:26)
[2023-07-23] MEDS ORDERED: MIDAZOLAM 2 MG/2 ML VIAL ONE (09:26)
[2023-07-23] MEDS ORDERED: methylPREDNISolone ACETATE 40 MG/ML 1 ML VIAL ONE (09:29)
[2023-07-23] MEDS ORDERED: ROPIVACAINE 5MG/ML 20ML VIAL ONE (09:29)
--- NOTE | 2023-07-23 09:42 | P.PCN ---
Date of Procedure: 07/23/23 Procedure(s) Performed: PREOPERATIVE DIAGNOSIS : 1- Lumbar spondylosis with Facet Arthropathy without myelopathy . 2- Lumber degenerative disc disease POSTOPERATIVE DIAGNOSIS: 1- Lumbar spondylosis with Facet Arthropathy without myelopathy . 2- Lumber degenerative disc disease PROCEDURE: Diagnostic bilateral L3 , L4 , and L5 medial branch block under fluoroscopy guidance(fluoroscopy images available in the radiology Department ) ( To target the facet joint between Bilateral L4-5 , and L5-S1 )# 1ST ANESTHESIA:, Monitored anesthesia care as per anesthesia department. EBL: Minimal COMPLICATION: None PROCEDURE INDICATION: Chronic low back pain secondary to Facet arthropathy unresponsive to conservative treatment. PROCEDURE DESCRIPTION: the patient was seen and identified in the preop holding area , risks and benefits and possible complications of the procedure and alternative were discussed with the patient, and the patient agreed to proceed with the procedure and signed the consent and vital signs monitored during the procedure and fluoroscopy was used to maximize the benefit and accuracy of the needle placement, and sedation was given to decrease patient anxiety, patient was taken to the procedure room and placed in prone position vital signs monitored in the back prepped with chlorhexidine X3 then under strict sterile technique using a right oblique fluoroscopy ,the junction of the transverse process and the superior articulating process of the right L3 , L4 , and L5 vertebra which corresponding to the fluoroscopy image of the eye of the Layton dog on the block side for the medial branches and subsequently , after local infiltration of skin and subcu tissuies with Ropivacaine 0.5 % , one mL at each level ,then 22-gauge Quincke-type needles , 3 needle was used , each one of them placed at the junction of the base of the transverse process and the superior articular process at the appropriate level, and the needle was advanced until the periosteum contacted, needle placement confirmed with AP oblique and lateral view and after appropriate needle placement confirmed, and after negative aspiration for heme and CSF and there was no paresthesia 1-1/2 mL of Ropivacaine 0.5% mixed with 20 mg Depo-Medrol , then half mL injected at each level after negative aspiration the needle subsequently removed and the same procedure repeated for the left side at left side at L3 , L4 and L5 levels. At the end of the procedure and the needles removed and a bandage applied after the skin was cleaned the cleaning solution patient taken to recovery room in stable condition and monitors in the recovery room for 20-30 minutes and discharged home in stable condition after discharge criteria met and patient will follow up with the pain clinic in 2-4 weeks
[2023-07-23] MEDS ORDERED: IV FLUID CONTINUATION 950 ML IV ONE (09:50)
[2023-07-23] MEDS ORDERED: LACTATED RINGERS 1,000 ML IV SCH (09:57)
--- NOTE | 2023-07-23 10:22 | FL ---
Intraoperative/procedural fluoroscopic services were provided. Total fluoroscopy time is 9.5 seconds with a total of 5 submitted images to PACS. Please see the operative/procedural note for further deta ils. DAP: 0.23532 mGym2 Gycm2
[2023-07-23 10:28] VITALS: BP 111/71; PULSE 72; RESP 16
== END 2023-07-23 10:22 | disposition home or self-care (01) ==
LOC: ORPAIN 08:13
PROVIDERS: ATTEND Specialist
DX: M51.36 Other intervertebral disc degeneration, lumbar region (principal); M47.816 Spondylosis without myelopathy or radiculopathy, lumbar region; G89.29 Other chronic pain; Z79.899 Other long term (current) drug therapy
CPT/HCPCS: 64493; 64494 ×2; J2250; J1030; J3010; J2795

== ENCOUNTER → 2023-08-10 | Outpatient (CLI) | payer BC ==
--- NOTE | 2023-08-10 08:28 | P.PAINPG ---
PQRS Measure Charge Sheet Comment: HISTORY OF PRESENT ILLNESS: A 33 yr old male presents today w severe and chronic LBP secondary to DDD, spondylosis and facet arthropathy without myelopathy for evaluation s/p BL MBB L3-L5 #1. Pt states he experienced 100% pain relief x 5 hrs s/p procedure. Pt states pain level is provoked at 8 /10 in intensity, constant, localized in the lower lumbar spine, predominantly axial, sharp in character without occasional shooting pain. Pain is provoked by overactivity. Pain is alleviated by PT in 2020, physician guided exercises and stretches daily since 2021, medications, topical, repositioning and rest. Oswestry axial pain score at 11. Interventional procedures include BL MBB L3-L5 x1 Medications include Ibu REVIEW OF ORGAN SYSTEMS: CONSTITUTIONAL: No fevers or chills. No recent weight loss. NEUROLOGICAL: + numbness and tingling along the distal extremities. No seizure disorders or headaches. MUSCULOSKELETAL: + pain PSYCHIATRIC: Denies current depression or suicidal thoughts. Physical Examinations : Constitutional : Cooperative , not in acute distress . Neurologic : Cranial nerve II to XII intact. No focal neurological deficits. Psychiatric : alert & oriented x 3. Matching mood & appropriate affect. Judgment & insight intact. Musculoskeletal : Cervical Spine Motor strength in the deltoid and biceps: Normal right side. Normal Left side Motor strength biceps and the wrist extensors: Normal right side . Normal left side Motor strength in the triceps muscle: Normal right side. Normal left side Deep tendon reflexes: Normal at the biceps. Normal at Brachioradialis. Normal at triceps Vertebral body tenderness to deep palpation over Cervical facet loading test: positive bilaterally Spurling test: positive bilaterally Neck distraction test: positive bilaterally Raven sign: positive bilaterally Lumbar spine Motor strength lower extremities ,thigh and legs 5/5 Right side , 5/5 Left side Deep tendon reflexes : Normal Knee Jerk. Normal Ankle Jerk Vertebral body tenderness over Jerez Test positive Lumbar facet Loading Test: positive Right / positive Left over L4-L5, L5-S1 Range of motion of the lumbar spine Flexion 30 degrees, extension 10 degrees Straight Leg Raise test: Left/ Right positive at degree Enrique test: positive right / positive left. Severe tenderness over the Sacroiliac joint on the Right / Left sides Gaenslen test: positive bilaterally Seated flexion test: positive bilaterally. Sacral spine : Severe tenderness over the Sacroiliac joint: right side / left side Range of motion: Flexion of the lumbar spine <60 degrees Range of motion: Extension of the lumbar spine <20 degrees Gaenslen's Test positive Andrea's Test positive Enrique test: positive right side / left side Thigh Thrust Test Sacral Thrust Test Imaging: MRI noncontrast the lumbar spine from 05/07/23 reviewed Assessment/ Plan : Lumbar DDD Recommendation of BL MBB L4-L5, L5-S1 #2. May need a series of injections, up until RFA, for optimal pain relief. Risks, benefits of procedure discussed and patient verbalized understanding. Admits to anti- coagulant use or medical history of diabetes. Protocol for discontinuation/ continuation of medications cheryle procedure discussed. Minimal anesthesia provided, if clinically indicated, consisting of Versed and Fentanyl. All questions answered. I have spent greater than 30 minutes on patient care today. Dr Lwason was available by phone for the evaluation of this patient. The time was used to review the medical records including relevant urine studies and Prescription history (MAPs), review of the available imaging, evaluation and examination of the patient, coordination of care with the medical staff and if applicable referring physicians, as well as creation of the medical record - Pain Location Bilateral Lower Back Non-Pharmacological Interventions: Home Exercise, Physical Therapy, Stretching Pharmacological Interventions: Block, Topical Medication PQRS Narrative: Smoking Status Current every day smoker Hx Alcohol Use (MH) Yes Home Medications: Ambulatory Orders No Known Home Medications 07/20/23 Controlled Substance Measures - Controlled Substance Measures Is patient prescribed a controlled substance at discharge?: No
[2023-08-10 08:38] VITALS: BP 132/81; PULSE 86; RESP 16; TEMP 98.1
== END ==
LOC: PNWHC3 07:58
PROVIDERS: ATTEND Specialist
DX: M51.37 Other intervertebral disc degeneration, lumbosacral region (principal); F17.200 Nicotine dependence, unspecified, uncomplicated
CPT/HCPCS: 99211

== ENCOUNTER 2023-08-20 07:55 | Day surgery (SDC) | payer BC ==
[2023-08-20] MEDS ORDERED: LACTATED RINGERS 1,000 ML IV SCH ×2 (08:15)
[2023-08-20] MEDS ORDERED: LIDOCAINE 1% (10MG/ML) FOR IV START INTRADERMA PRN (08:15)
[2023-08-20 08:27] VITALS: TEMP 97.8
[2023-08-20] MEDS ORDERED: fentaNYL (PF) 50 MCG/ML 2 ML AMP ONE (09:17)
[2023-08-20] MEDS ORDERED: MIDAZOLAM 2 MG/2 ML VIAL ONE (09:17)
[2023-08-20] MEDS ORDERED: ROPIVACAINE 5MG/ML 20ML VIAL ONE (09:21)
[2023-08-20] MEDS ORDERED: IV FLUID CONTINUATION 700 ML IV ONE ×2 (09:46)
--- NOTE | 2023-08-20 10:00 | P.PCN ---
Description of Procedure: Preprocedure diagnosis. 1. Lumbar spondylosis with facet joint arthropathy without myelopathy. 2. Lumbar degenerative disc disease. Postprocedure diagnosis. As above. Procedure done. Bilateral diagnostic block with local anesthetics at L3, L4, L5 medial branch with fluoroscopic guidance (fluoroscopy images are available in the radiology department) target to the facet joint bilateral/right/left L4 5 and L5-S1 levels. Anesthesia. Related anesthesia care as per anesthesia department/ Blood loss. Minimal. Indication. The patient has low back pain secondary to lumbar facet joint arthropathy. Discussed the procedure and alternative and complications which includes infection, bleeding, nerve damage, aggravation of pain. Patient understands and all questions were answered. Patient iunderstands that if any pain relief occurs it will last for a few hours to a few days maximum. Procedure description. After getting consent patient was taken in the OR in prone position. Back prepped with chlorhexidine and draped in sterile fashion. After injecting 5 mL of plain 1% lidocaine subcutaneously, a 22-gauge spinal needle was introduced under tunnel vision of the fluoroscope at the junction of the superior articular process with right ala of the sacrum. With slight right oblique fluoroscope, after injecting 5 mL of plain 1% lidocaine subcutaneously, a 22-gauge spinal needle was introduced under tunnel vision of the fluoroscope at the junction of the superior articular process with right L5 transverse p rocess, junction of the superior articular process with the right L4 transverse process. After needle position confirmation by AP and crosstable lateral view, after negative aspiration, half milliliters of 0.5% ropivacaine were injected at each point. In exactly same way, left sided injections were done at the following 3 points. Junction of the superior articular process with left ala of the sacrum, junction of the superior articular process with the left L5 transverse process, junction of the superior articular process with left L4 transverse process. Total 3 mL of 0.5% ropivacaine was injected. Spinal needles were taken out and bandages were applied. Disposition. Patient tolerated the procedure well. No complication. Discharged home in stable condition.
--- NOTE | 2023-08-20 10:22 | FL ---
Intraoperative/procedural fluoroscopic services were provided. Total fluoroscopy time is 9.5 seconds with a total of 4 submitted images to PACS. Please see the operative/procedural note for further deta ils. DAP: [id number] mGym2
[2023-08-20 10:34] VITALS: BP 120/81; PULSE 77; RESP 20
== END 2023-08-20 10:17 | disposition home or self-care (01) ==
LOC: ORPAIN 07:55
PROVIDERS: ATTEND Pain Medicine Interventional Pain Medicine
DX: M51.36 Other intervertebral disc degeneration, lumbar region (principal); M47.816 Spondylosis without myelopathy or radiculopathy, lumbar region; F32.A Depression, unspecified; Z98.890 Other specified postprocedural states
CPT/HCPCS: 64493; 64494 ×2; 99152; J2250; J3010; J2795

== ENCOUNTER → 2023-09-15 | Outpatient (CLI) | payer BC ==
[2023-09-15 08:42] VITALS: BP 114/79; PULSE 88; RESP 16; TEMP 98.6
--- NOTE | 2023-09-15 14:27 | P.PAINPG ---
PQRS Measure Charge Sheet Comment: HISTORY OF PRESENT ILLNESS: A 33 yr old male presents today w severe and chronic LBP secondary to DDD, spondylosis and facet arthropathy without myelopathy for evaluation s/p BL MBB L3-L5 #2. Pt states he experienced 100 % pain relief x 6 hrs s/p procedure. Pt states pain level is provoked at 7/10 in intensity, constant, localized in the lower lumbar spine, predominantly axial, sharp in character without occasional shooting pain. Pain is provoked by overactivity. Pain is alleviated by PT in 2020, physician guided exercises and stretches daily since 2021, medications, topical, repositioning and rest. Oswestry axial pain score at 10. Interventional procedures include BL MBB L3-L5 x2 Medications include Ibu REVIEW OF ORGAN SYSTEMS: CONSTITUTIONAL: No fevers or chills. No recent weight loss. NEUROLOGICAL: + numbness and tingling along the distal extremities. No seizure disorders or headaches. MUSCULOSKELETAL: + pain PSYCHIATRIC: Denies current depression or suicidal thoughts. Physical Examinations : Constitutional : Cooperative , not in acute distress . Neurologic : Cranial nerve II to XII intact. No focal neurological deficits. Psychiatric : alert & oriented x 3. Matching mood & appropriate affect. Judgment & insight intact. Musculoskeletal : Cervical Spine Motor strength in the deltoid and biceps: Normal right side. Normal Left side Motor strength biceps and the wrist extensors: Normal right side . Normal left side Motor strength in the triceps muscle: Normal right side. Normal left side Deep tendon reflexes: Normal at the biceps. Normal at Brachioradialis. Normal at triceps Vertebral body tenderness to deep palpation over Cervical facet loading test: positive bilaterally Spurling test: positive bilaterally Neck distraction test: positive bilaterally Raven sign: positive bilaterally Lumbar spine Motor strength lower extremities ,thigh and legs 5/5 Right side , 5/5 Left side Deep tendon reflexes : Normal Knee Jerk. Normal Ankle Jerk Vertebral body tenderness over Jerez Test positive Lumbar facet Loading Test: positive Right / positive Left over L4-L5, L5-S1 Range of motion of the lumbar spine Flexion 30 degrees, extension 10 degrees Straight Leg Raise test: Left/ Right positive at degree Enrique test: positive right / positive left. Severe tenderness over the Sacroiliac joint on the Right / Left sides Gaenslen test: positive bilaterally Seated flexion test: positive bilaterally. Sacral spine : Severe tenderness over the Sacroiliac joint: right side / left side Range of motion: Flexion of the lumbar spine <60 degrees Range of motion: Extension of the lumbar spine <20 degrees Gaenslen's Test positive Andrea's Test positive Enrique test: positive right side / left side Thigh Thrust Test Sacral Thrust Test Imaging: MRI noncontrast the lumbar spine from 05/07/23 reviewed Assessment/ Plan : Lumbar DDD Recommendation of BL RFA L4-L5, L5-S1. Exhibited optimal pain relief w previous MBB procedures. Risks, benefits of procedure discussed and patient verbalized understanding. Admits to anti- coagulant use or medical history of diabetes. Protocol for discontinuation/ continuation of medications cheryle procedure discussed. Minimal anesthesia provided, if clinically indicated, consisting of Versed and Fentanyl. All questions answered. I have spent greater than 30 minutes on patient care today. Dr Lawson was available by phone for the evaluation of this patient. The time was used to review the medical records including relevant urine studies and Prescription history (MAPs), review of the available imaging, evaluation and examination of the patient, coordination of care with the medical staff and if applicable referring physicians, as well as creation of the medical record PQRS Narrative: Smoking Status Current every day smoker Hx Alcohol Use (MH) Yes Home Medications: Ambulatory Orders No Known Home Medications 07/20/23 Controlled Substance Measures - Controlled Substance Measures Is patient prescribed a controlled substance at discharge?: No
== END ==
LOC: PNWHC3 08:06
PROVIDERS: ATTEND Specialist
DX: M51.36 Other intervertebral disc degeneration, lumbar region (principal); F17.200 Nicotine dependence, unspecified, uncomplicated
CPT/HCPCS: 99211

== ENCOUNTER 2023-09-24 08:32 | Day surgery (SDC) | payer BC ==
[2023-09-20 15:38] VITALS: BMI 30.1
[~2023-09-24 08:32] MED LIST: LACTATED RINGERS 1,000 ML IV SCH; LIDOCAINE 1% (10MG/ML) FOR IV START INTRADERMA PRN
[2023-09-24] MEDS ORDERED: LACTATED RINGERS 1,000 ML IV ONE (08:47)
[2023-09-24 08:52] VITALS: PULSE 91; TEMP 98.6
[2023-09-24] MEDS ORDERED: MIDAZOLAM 2 MG/2 ML VIAL ONE (08:57)
[2023-09-24] MEDS ORDERED: fentaNYL (PF) 50 MCG/ML 2 ML AMP ONE (08:57)
[2023-09-24] MEDS ORDERED: TRIAMCINOLONE ACETONIDE 40 MG/ML 1 ML VIAL ONE (08:59)
[2023-09-24] MEDS ORDERED: ROPIVACAINE 5MG/ML 20ML VIAL ONE (08:59)
--- NOTE | 2023-09-24 09:21 | P.PCN ---
Date of Procedure: 09/24/23 Surgeon: Kaitlynn Hickman Pathology: none sent Condition: stable Disposition: PACU Description of Procedure: PREOPERATIVE DIAGNOSIS: Lumbar spondylosis without myelopathy POSTOPERATIVE DIAGNOSIS: Lumbar spondylosis without myelopathy PROCEDURES : Bilateral Radiofrequency thermocoagulation L4-L5, and L5-S1 medial branch, with fluoroscopic guidance ANESTHESIA: Local with lidocaine 1% using 25-gauge needle and IV moderate conscious sedation by the anesthesia Department Physician: Kaitlynn Hickman MD EBL: Minimal PROCEDURE INDICATION: The patient with low back pain secondary to lumbar facet arthropathy who had significant relief of pain with previous diagnostic lumbar medial branch block with Ropivacaine0.5%. PROCEDURE DESCRIPTION / TECHNIQUE: The patient was seen and identified in the preoperative area. Risks, benefits, complications, including but not limited to risk of infection ,bleeding , allergic reactions to the medications and no complete pain relief , and alternatives were discussed with the patient, the patient agreed to proceed with the procedure and signed the consent. IV was started. Vital signs remained stable throughout the procedure. Patient was taken to the OR and time out was completed. The patient was placed in the prone position on the procedure table. The lumber area was prepped and draped in the usual sterile fashion. . Vital signs were closely monitored during the procedure .IV sedation was used during the procedure to decrease patients anxiety. The target points were identified as follows: For the L5-S1 level which corresponds to the dorsal ramus of L5 the target point was at the superior medial aspect of the sacral ala on the Rt side of the spine on the AP view of fluoroscopy and for the L3, and L4 medial branches the target points were at t he connection between the transverse process and the superior articular process of L4, and L5 vertebra respectively on the Rt oblique view of fluoroscopy. skin was marked, and localized with 1% lidocaineat these points. Subsequently, an 18 -hk radiofrequency needles with a 10-mm curved active tips were advanced guided by fluoroscopy to each of the target points mentioned above in a superior medial direction to get the active tips as parallel as possible to the medial branches tracks. AP, oblique, and lateral views of fluoroscopy were used to verify needle tips position. Each level then underwent motor testing at 2.5 Hz and 0 to 3 volt with local stimulation, but no radicular symptoms down the legs. I then injected 1 mL of lidocaine 1% in each needle before starting radiofrequency thermocoagulation at 80 degrees celsius for 90 seconds. After that I injected 1 ml of PF Ropivacaine 0.5%(3 mls) with 40 mg of Kenalog, 1 mL of this mixture was given in each needle before taking the needles out intact. Then the left side with the same levels was done in the same manner. At the end of the procedure, the skin was cleansed and bandages were applied. A copy of needle placement fluoroscopy was saved on the C-arm machine. COMPLICATIONS: No acute complications. DISPOSITION / PLANS: The patient was placed in a supine position and transferred to the recovery area in a stable condition for observation and was discharged from the recovery room after meeting discharge criteria. Home discharge instructions given to the patient by the staff. The patient was reexamined prior to discharge. The patient will schedule a follow up in the clinic in 2-4 weeks.
[2023-09-24] MEDS ORDERED: IV FLUID CONTINUATION 1,000 ML IV ONE (09:25)
[2023-09-24 09:42] VITALS: BP 134/88; RESP 16
--- NOTE | 2023-09-24 12:28 | FL ---
EXAMINATION TYPE: FL guided pain mgmt statistic DATE OF EXAM: 09/24/2023 FLUOROSCOPY Fluoroscopy time of 17 seconds was used during lumbar radiofrequency ablations. 9 image/s document/s the procedure. [id number] mGym2
== END 2023-09-24 09:55 | disposition home or self-care (01) ==
LOC: ORPAIN 08:32
PROVIDERS: ATTEND Anesthesiology
DX: M47.816 Spondylosis without myelopathy or radiculopathy, lumbar region (principal)
CPT/HCPCS: 64635; 64636 ×2; J2250; J3301; J3010; J2795

== ENCOUNTER → 2023-10-21 | Outpatient (CLI) | payer BC ==
[2023-10-21 08:20] VITALS: BP 148/72; PULSE 89; RESP 15
--- NOTE | 2023-10-21 13:39 | P.PAINPG ---
Objective - Vital Signs Vital signs: Intake & Output 10/20/23 10/21/23 10/21/23 18:59 06:59 18:59 Weight 100.698 kg PQRS Measure Charge Sheet Comment: HISTORY OF PRESENT ILLNESS: A 33 yr old male presents today w severe and chronic LBP secondary to DDD, spondylosis and facet arthropathy without myelopathy for evaluation s/p BL RFA L3-L5. Pt states he experienced 30 % pain relief s/p procedure. Pt states pain level is provoked at 7 /10 in intensity, constant, localized in the L lumbar spine, predominantly axial, sharp in character without occasional shooting pain. Pain is provoked by overactivity. Pain is alleviated by injections, PT in 2020, physician guided exercises and stretches daily since 2021, medications, topical, repositioning and rest. Oswestry axial pain score at 10. Interventional procedures include BL RFA L3-L5 (Sep 2023) Medications include Ibu REVIEW OF ORGAN SYSTEMS: CONSTITUTIONAL: No fevers or chills. No recent weight loss. NEUROLOGICAL: + numbness and tingling along the distal extremities. No seizure disorders or headaches. MUSCULOSKELETAL: + pain PSYCHIATRIC: Denies current depression or suicidal thoughts. Physical Examinations : Constitutional : Cooperative , not in acute distress . Neurologic : Cranial nerve II to XII intact. No focal neurological deficits. Psychiatric : alert & oriented x 3. Matching mood & appropriate affect. Judgment & insight intact. Musculoskeletal : Cervical Spine Motor strength in the deltoid and biceps: Normal right side. Normal Left side Motor strength biceps and the wrist extensors: Normal right side . Normal left side Motor strength in the triceps muscle: Normal right side. Normal left side Deep tendon reflexes: Normal at the biceps. Normal at Brachioradialis. Normal at triceps Vertebral body tenderness to deep palpation over Cervical facet loading test: positive bilaterally Spurling test: positive bilaterally Neck distraction test: positive bilaterally Raven sign: positive bilaterally Lumbar spine Motor strength lower extremities ,thigh and legs 5/5 Right side , 5/5 Left side Deep tendon reflexes : Normal Knee Jerk. Normal Ankle Jerk Vertebral body tenderness over Jerez Test positive Lumbar facet Loading Test: positive Right / positive Left over L4-L5, L5-S1 Range of motion of the lumbar spine Flexion 30 degrees, extension 10 degrees Straight Leg Raise test: Left/ Right positive at degree Enrique test: positive right / positive left. Severe tenderness over the Sacroiliac joint on the Right / Left sides Gaenslen test: positive bilaterally Seated flexion test: positive bilaterally. Sacral spine : Severe tenderness over the Sacroiliac joint: right side / left side Range of motion: Flexion of the lumbar spine <60 degrees Range of motion: Extension of the lumbar spine <20 degrees Gaenslen's Test positive Andrea's Test positive Enrique test: positive right side / left side Thigh Thrust Test Sacral Thrust Test Imaging: MRI noncontrast the lumbar spine from 05/07/23 reviewed Assessment/ Plan : Lumbar DDD Will follow up w Dr Miller to explore additional treatment options. All questions answered. I have spent greater than 30 minutes on patient care today. Dr Lawson was available by phone for the evaluation of this patient. The time was used to review the medical records including relevant urine studies and Prescription history (MAPs), review of the available imaging, evaluation and examination of the patient, coordination of care with the medical staff and if applicable referring physicians, as well as creation of the medical record PQRS Narrative: Smoking Status Current every day smoker Hx Alcohol Use (MH) Yes Home Medications: Ambulatory Orders No Known Home Medications 07/20/23 Controlled Substance Measures - Controlled Substance Measures Is patient prescribed a controlled substance at discharge?: No
== END ==
LOC: PNWHC3 07:53
PROVIDERS: ATTEND Specialist
DX: M51.37 Other intervertebral disc degeneration, lumbosacral region (principal); F17.200 Nicotine dependence, unspecified, uncomplicated
CPT/HCPCS: 99211

== ENCOUNTER 2024-09-25 00:52 | Emergency (ER) | payer BC, OTHER ==
[2024-09-25] MEDS: MORPHINE SULFATE 4 MG/ML SYRINGE IVP STA (01:24)
[2024-09-25] MEDS: ONDANSETRON 4 MG/2 ML VIAL IVP STA (01:24)
[2024-09-25] MEDS: KETOROLAC 15 MG/ML 1 ML VIAL IVP STA ×3 (01:24→03:08)
[2024-09-25 01:32] LABS: Basophils # (A) 0.1 k/uL (0-0.2); Basophils % (A) 1 %; Eosinophils # (A) 0.4 k/uL (0-0.7); Eosinophils % (A) 3 %; HCT 43.5 % (39.0-53.0); HGB 15.1 gm/dL (13.0-17.5); Lymphocytes # (A) 3.7 k/uL (1.0-4.8); Lymphocytes % (A) 27 %; MCH 28.3 pg (25.0-35.0); MCHC 34.8 g/dL (31.0-37.0); MCV 81.4 fL (80.0-100.0); Mean Platelet Volume 7.9; Monocytes # (A) 0.8 k/uL (0-1.0); Monocytes % (A) 6 %; Neutrophils # (A) 8.4 k/uL (1.3-7.7); Neutrophils % (A) 61 %; Platelet Count 284 k/uL (150-450); RBC 5.35 m/uL (4.30-5.90); RDW 13.1 % (11.5-15.5); WBC 13.7 k/uL (3.8-10.6)
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
[2024-09-25 01:39] LABS: ALT 23 U/L (4-49); AST 29 U/L (17-59); African American GFR (CKD) >90 (>60 ml/min/1.73 sqM); Albumin 4.8 g/dL (3.5-5.0); Alkaline Phosphatase 91 U/L (38-126); Anion Gap 10 mmol/L; Blood Urea Nitrogen 14 mg/dL (9-20); Calcium 9.7 mg/dL (8.4-10.2); Carbon Dioxide 24 mmol/L (22-30); Chloride 105 mmol/L (98-107); Glucose 108 mg/dL (74-99); Lipase 103 U/L (23-300); Non-African American GFR(CKD) >90 (>60 ml/min/1.73 sqM); Sodium 139 mmol/L (137-145); Total Bilirubin 0.5 mg/dL (0.2-1.3); Total Protein 7.7 g/dL (6.3-8.2)
[2024-09-25] MEDS: SODIUM CHLORIDE 0.9% 1,000 ML IV STA (01:43)
--- NOTE | 2024-09-25 02:16 | CT ---
EXAM: CT Abdomen and Pelvis Without Intravenous Contrast CLINICAL HISTORY: ITS.REASON CT Reason: right flank pain, kidney stone suspected TECHNIQUE: Axial computed tomography images of the abdomen and pelvis without intravenous contrast. CTDI is 14.7 mGy and DLP is 988.1 mGy-cm. This CT exam was performed using one or more of the following dose reduction techniques: automated exposure control, adjustment of the mA and/or kV according to patient size, and/or use of iterative reconstruction technique. COMPARISON: No relevant prior studies available. FINDINGS: Lung bases: Unremarkable. No mass. No consolidation. ABDOMEN: Liver: Unremarkable. Gallbladder and bile ducts: Unremarkable. No calcified stones. No ductal dilation. Pancreas: Unremarkable. No ductal dilation. Spleen: Unremarkable. No splenomegaly. Adrenals: Unremarkable. No mass. Kidneys and ureters: Mild right hydronephrosis secondary to a 3 mm distal right ureteral calculus just proximal to the UVJ. Nonobstructing right upper pole intrarenal calculus. No left-sided hydronephrosis. Stomach and bowel: Diverticulosis without evidence of diverticulitis and. No obstruction. PELVIS: Appendix: No findings to suggest acute appendicitis. Bladder: Unremarkable. No stones. Reproductive: Unremarkable as visualized. ABDOMEN and PELVIS: Intraperitoneal space: Unremarkable. No free air. No significant fluid collection. Bones/joints: No acute fracture. No dislocation. Soft tissues: Unremarkable. Vasculature: Unremarkable. No abdominal aortic aneurysm. Lymph nodes: Unremarkable. No enlarged lymph nodes. IMPRESSION: Mild right hydronephrosis secondary to a 0.3 cm distal right ureteral calculus. Nonobstructing right-sided intrarenal calculus
[2024-09-25] MEDS: MORPHINE SULFATE 2 MG/ML SYRINGE IVP ONE (02:42)
[2024-09-25 02:44] LABS: Appearance,Urine Clear (Clear); Bilirubin,Urine Negative (Negative); Blood,Urine Large (Negative); Color,Urine Yellow; Glucose,Urine (UA) Negative (Negative); Ketones,Urine Negative (Negative); Leukocyte Esterase,Urine Negative (Negative); Mucus,Urine Occasional /hpf; Nitrite,Urine Negative (Negative); Protein,Urine Trace (Negative); RBC,Urine 49 /hpf (0-5); Specific Gravity,Urine 1.029 (1.001-1.035); Squamous Epithelial Cell,Urine <1 /hpf (0-4); Urobilinogen,Urine <2.0 mg/dL (<2.0); WBC,Urine 1 /hpf (0-5)
[2024-09-25] MEDS: HYDROmorphone 1 MG/ML 1 ML SYRINGE IVP STA (03:10)
[2024-09-25 04:02] VITALS: BP 147/84; PULSE 113; RESP 17; TEMP 98.2
== END 2024-09-25 04:02 | disposition home or self-care (01) ==
LOC: EC 00:52
DX: N20.0 Calculus of kidney (principal); F17.290 Nicotine dependence, other tobacco product, uncomplicated
CPT/HCPCS: 36415; 80053; 83605; 83690; 85025; 81001; 74176; 99284; 96374; 96375; 96376; 96361; J2270 ×2; J2405; J1171; J1885